=== PATIENT | male | born 1945 | race Caucasian/White ===

== ENCOUNTER 2016-12-28 09:04 | Inpatient (IN) | payer MEDICARE, MEDICAID ==
[~2016-12-28] VITALS: Ht 188 cm; Wt 115.6 kg
[2016-12-28] VITALS (188 sets, daily range): BP systolic 92–105; BP diastolic 59–79; PULSE 50–98; TEMP 98–99; O2SAT 88–100
[~2016-12-28 09:04] MED LIST: ALBUTEROL0.83 MG/ML IH; AMOXICILLIN/CLA1 TA1 PO; ASPIRIN 32325 MG/TAB PO; ATROVENT I0.2 MG/1 M IH; BACTRIM DS 8001 TAB PO; CEFTIN500 MG PO; DEPAKENE250 MG PO; DEPAKOTE 250MG250 MG PO; DEPAKOTE ER 25250 MG PO; DEPAKOTE500 MG PO; DESYREL 100MG100 MG PO; ENULOSE10 GM/151 PO; FLOMAX 0.40.4 MG/CAP PO; FOLIC ACID 11 MG/TA1 PO; GEODON 20 MG20 MG PO; GLUCOPHAGE1000 MG PO; IPRATROPIUM BROM3 M1 IH; K-DUR 2020 MEQ PO; KEPPRA 500MG500 MG PO; KLONOPIN 0.5MG0.5 MG PO; KLOR-CON M2020 MEQ PO; LANTUS100 U/ML SC; LASIX 40MG TABL40 MG PO; LEVAQUIN 5500 MG/TA1 PO; LEVAQUIN 750MG750 M1 PO; LIDODERM PATCH TP; LORTAB 5/500 501 TAB PO; MOBIC 7.5MG7.5 MG PO; MOTRIN 400400 MG/TAB PO; NEURONTIN300 MG/CAP PO; NEURONTIN800 MG/TAB PO; NORCO 325 MG-51 TAB PO; NORCO 325 MG-7.1 TAB PO; PERCOCET 325 MG1 TA2 PO; PRIL40 PO; PRILOTC PO; REMERON 15M15 MG/TA1 PO; SENNA8.6 MG PO; SYNTHROID0.1 MG/TAB PO; TAMIFLU 75MG75 MG PO; TRANSDERM-0.5 MG/21 TOP; TUDORZA IH; ULTRAM 50MG TAB50 MG PO; UNABLE; VALIUM5 MG/ML PO; ZITHROMAX 250M250 MG PO; ZOFRAN ODT8 MG PO; ZYPREXA 5MG5 MG PO
[2016-12-28 09:47] LABS: BASO % 0.3 % (0.0-2.0); EOS % 0.3 % (0-4.0); GRAN # 9.3 (1.4-6.5); GRAN % 81.1 % (42.2-75.2); HEMATOCRIT 43.2 % (42.0-52.0); LYMPH # 1.5 (1.2-3.4); LYMPH % 13.1 % (20.0-51.0); MEAN CELL VOLUME 89 fl (80.0-100.0); MEAN CORPUSCULAR HEMOGLOBIN 31 pg (27.0-31.0); MEAN CORPUSCULAR HGB CONC 35 g/dl (33.0-37.0); MEAN PLATELET VOLUME 11.3 fl (7.4-10.4); MONO # 0.5 (0.1-0.6); MONO % 4.6 % (1.7-9.3); PLATELET COUNT 115 K/mm3 (130-400); RED BLOOD COUNT 4.86 M/mm3 (4.20-5.60); REDCELL DISTRIBUTION WIDTH-CV 12.9 % (11.5-14.5); WHITE BLOOD COUNT 11.5 K/mm3 (4.8-10.8)
[2016-12-28 09:50] LABS: ADJUSTED CALCIUM 8.8 mg/dL (8.4-10.2); ALBUMIN 4.1 gm/dL (3.5-5.0); BILIRUBIN,TOTAL 2.4 mg/dL (0.0-1.0); CALCIUM 8.9 mg/dL (8.4-10.2); CREATININE, serum 1.17 mg/dL (0.66-1.25); POTASSIUM 4.1 mmol/L (3.4-5.0)
[2016-12-28 09:51] LABS: ARTERIAL BLD GAS O2 SATURATION 89.9 % (92-100); ARTERIAL BLD GAS TCO2 CT 25.4; ARTERIAL BLOOD GAS BASE EXCESS 0.7 (-2-2); ARTERIAL BLOOD GAS HCO3 24.3 meq/L (22-26); ARTERIAL BLOOD GAS PHT 7.45 C (7.35-7.45); ARTERIAL BLOOD GAS pH 7.45 (7.35-7.45); OXYHEMOGLOBIN 88.5 %
[2016-12-28 09:52] LABS: ALLEN TEST YES; ALLENS TEST RESULT PASS; ATS? YES
[2016-12-28 09:53] LABS: INFLUENZA B NEGATIVE
[2016-12-28 11:49] LABS: PH 7 (5-8); SQUAMOUS EPITHELIAL None Seen /hpf; URINE APPEARANCE Clear; URINE BACTERIA None Seen /hpf; URINE BILIRUBIN Negative (NEGATIVE); URINE BLOOD Negative (NEGATIVE); URINE COLOR Yellow; URINE GLUCOSE Negative (NEGATIVE); URINE KETONE Negative (NEGATIVE); URINE RBC 0-2 /hpf; URINE UROBILINOGEN Negative (NEGATIVE); URINE WBC 0-2 /hpf
[2016-12-28] MEDS ORDERED: PRIL40 PO (11:59)
[2016-12-28] MEDS ORDERED: SYNTHROID0.1 MG/TAB PO (12:00)
[2016-12-28] MEDS ORDERED: NEURONTIN800 MG/TAB PO (12:01)
[2016-12-28] MEDS ORDERED: KEPPRA 500MG500 MG PO (12:02)
[2016-12-28] MEDS ORDERED: DEPAKOTE 250MG250 MG PO (12:02)
[2016-12-28] MEDS ORDERED: KLONOPIN 0.5MG0.5 MG PO (12:03)
[2016-12-28] MEDS ORDERED: MOBIC 7.5MG7.5 MG PO (12:04)
[2016-12-28] MEDS ORDERED: GLUCOPHAGE1000 MG PO (12:05)
[2016-12-29] VITALS (8 sets, daily range): BP systolic 86–118; BP diastolic 40–72; PULSE 70–89; TEMP 97.2–98.7
[2016-12-29 07:13] LABS: BASO % 0.3 % (0.0-2.0); EOS # 0.1 (0.0-0.7); EOS % 1.1 % (0-4.0); GRAN # 7.6 (1.4-6.5); GRAN % 72.4 % (42.2-75.2); HEMATOCRIT 40.2 % (42.0-52.0); HEMOGLOBIN 13.5 g/dl (13.5-18.0); LYMPH % 19.4 % (20.0-51.0); MEAN CELL VOLUME 92 fl (80.0-100.0); MEAN CORPUSCULAR HEMOGLOBIN 31 pg (27.0-31.0); MEAN CORPUSCULAR HGB CONC 34 g/dl (33.0-37.0); MEAN PLATELET VOLUME 11.4 fl (7.4-10.4); MONO # 0.7 (0.1-0.6); MONO % 6.2 % (1.7-9.3); PLATELET COUNT 108 K/mm3 (130-400); RED BLOOD COUNT 4.38 M/mm3 (4.20-5.60); REDCELL DISTRIBUTION WIDTH-CV 13.2 % (11.5-14.5); WHITE BLOOD COUNT 10.5 K/mm3 (4.8-10.8)
[2016-12-29 07:30] LABS: CALCIUM 8.7 mg/dL (8.4-10.2); CREATININE, serum 1.04 mg/dL (0.66-1.25); POTASSIUM 4.1 mmol/L (3.4-5.0)
[2016-12-30 03:46] VITALS: BP 107/66; PULSE 71; TEMP 98.1
[2016-12-30 08:30] VITALS: BP 107/93; PULSE 74; TEMP 97.4
[2016-12-30 09:04] LABS: BASO % 0.4 % (0.0-2.0); EOS # 0.1 (0.0-0.7); EOS % 1.8 % (0-4.0); GRAN # 4.7 (1.4-6.5); GRAN % 65.4 % (42.2-75.2); HEMATOCRIT 39.8 % (42.0-52.0); HEMOGLOBIN 13.5 g/dl (13.5-18.0); LYMPH # 1.8 (1.2-3.4); LYMPH % 25.2 % (20.0-51.0); MEAN CELL VOLUME 91 fl (80.0-100.0); MEAN CORPUSCULAR HEMOGLOBIN 31 pg (27.0-31.0); MEAN CORPUSCULAR HGB CONC 34 g/dl (33.0-37.0); MEAN PLATELET VOLUME 11.6 fl (7.4-10.4); MONO # 0.5 (0.1-0.6); MONO % 6.8 % (1.7-9.3); PLATELET COUNT 122 K/mm3 (130-400); RED BLOOD COUNT 4.38 M/mm3 (4.20-5.60); REDCELL DISTRIBUTION WIDTH-CV 13.1 % (11.5-14.5); WHITE BLOOD COUNT 7.2 K/mm3 (4.8-10.8)
[2016-12-30 09:38] LABS: CALCIUM 8.9 mg/dL (8.4-10.2); CREATININE, serum 1.19 mg/dL (0.66-1.25); POTASSIUM 4.1 mmol/L (3.4-5.0)
[2016-12-30 12:21] VITALS: BP 96/70; PULSE 73; TEMP 98.6
[2016-12-30] MEDS ORDERED: ALBUTEROL1.25 MG/3 IH (14:29)
[2016-12-30] MEDS ORDERED: LEVAQUIN 750MG750 M1 PO (14:29)
[2016-12-30] MEDS ORDERED: PREDNISONE20 MG PO (14:29)
== END 2016-12-30 16:17 | disposition home or self-care (01) | DRG 871 ==
LOC: COL.ER 09:04 → ICU 10:41 → MEDICAL 10:41
PROVIDERS: Family Medicine; Internal Medicine
DX: A41.9 Sepsis, unspecified organism (principal); J18.9 Pneumonia, unspecified organism; E11.9 Type 2 diabetes mellitus without complications; E03.9 Hypothyroidism, unspecified; G31.84 Mild cognitive impairment of uncertain or unknown etiology; Z87.820 Personal history of traumatic brain injury; Z87.891 Personal history of nicotine dependence; Z79.84 Long term (current) use of oral hypoglycemic drugs
CPT/HCPCS: 99223-AI; 99232-AI; 99239; J0456; J0696; J1956; J7030; J7040; J7050

== ENCOUNTER → 2017-02-26 | Outpatient (CLI) | payer MEDICARE, MEDICAID ==
[~2017-02-26] MED LIST changes: +ALBUTEROL1.25 MG/3 IH; +LEXAPRO 5MG5 MG PO; +PREDNISONE20 MG PO
== END ==
LOC: COL.RAD 10:14
DX: I51.7 Cardiomegaly (principal); R91.8 Other nonspecific abnormal finding of lung field; J18.1 Lobar pneumonia, unspecified organism
CPT/HCPCS: Q9967

== ENCOUNTER 2017-07-14 19:21 | Inpatient (IN) | payer MEDICARE, MEDICAID ==
[2017-07-14] VITALS (55 sets, daily range): BP systolic 105; BP diastolic 64; PULSE 97–98; TEMP 99.7; O2SAT 70–100
[~2017-07-14] VITALS: Ht 188 cm; Wt 115.5 kg
[~2017-07-14 19:21] MED LIST changes: -LEXAPRO 5MG5 MG PO
[2017-07-14 20:15] LABS: BASO % 0.4 % (0.0-2.0); EOS # 0.1 (0.0-0.7); EOS % 0.6 % (0-4.0); GRAN # 7.8 (1.4-6.5); GRAN % 71.3 % (42.2-75.2); HEMOGLOBIN 15.3 g/dl (13.5-18.0); LYMPH # 2.5 (1.2-3.4); LYMPH % 22.6 % (20.0-51.0); MEAN CELL VOLUME 92 fl (80.0-100.0); MEAN CORPUSCULAR HEMOGLOBIN 31 pg (27.0-31.0); MEAN CORPUSCULAR HGB CONC 34 g/dl (33.0-37.0); MEAN PLATELET VOLUME 11.4 fl (7.4-10.4); MONO # 0.5 (0.1-0.6); MONO % 4.7 % (1.7-9.3); PLATELET COUNT 149 K/mm3 (130-400); RED BLOOD COUNT 4.91 M/mm3 (4.20-5.60); WHITE BLOOD COUNT 10.9 K/mm3 (4.8-10.8)
[2017-07-14 20:25] LABS: ADJUSTED CALCIUM 8.5 mg/dL (8.4-10.2); ALANINE AMINOTRANSFERASE 18 U/L (21-72); ALBUMIN 4.5 gm/dL (3.5-5.0); ALKALINE PHOSPHATASE 82 U/L (50-136); ANION GAP 14 mmol/L (7-16); BILIRUBIN,TOTAL 1.1 mg/dL (0.0-1.0); BLOOD UREA NITROGEN 9 mg/dL (9-20); CALCIUM 8.9 mg/dL (8.4-10.2); CARBON DIOXIDE 24 mmol/L (22-30); CHLORIDE 101 mmol/L (98-107); CREATININE, serum 1.12 mg/dL (0.66-1.25); GLUCOSE 97 mg/dL (74-106); LIPASE 91 U/L (23-300); POTASSIUM 3.9 mmol/L (3.4-5.0); SODIUM 139 mmol/L (137-145); TOTAL PROTEIN 8.3 gm/dL (6.4-8.2)
[2017-07-14 20:34] LABS: PROTHROMBIN TIME 11.1 SECONDS (9.7-12.8)
[2017-07-14 20:35] LABS: B-TYPE NATRIURETIC PEPTIDE 156 pg/mL (0-125)
[2017-07-14 20:37] LABS: PARTIAL THROMBOPLASTIN TIME 30.8 SECONDS (26.0-37.0); TROPONIN-I < 0.012 ng/mL (0.000-0.034)
[2017-07-14 20:55] LABS: PH 6 (5-8); SQUAMOUS EPITHELIAL 0-2 /hpf; URINE APPEARANCE Clear; URINE BACTERIA None Seen /hpf; URINE BILIRUBIN Negative (NEGATIVE); URINE BLOOD Negative (NEGATIVE); URINE COLOR Yellow; URINE GLUCOSE Negative (NEGATIVE); URINE KETONE Negative (NEGATIVE); URINE RBC 0-2 /hpf; URINE UROBILINOGEN Negative (NEGATIVE); URINE WBC 0-2 /hpf
[2017-07-14] MEDS ORDERED: LEXAPRO 5MG5 MG PO (21:24)
[2017-07-14 22:05] LABS: ARTERIAL BLD GAS TCO2 CT 23.4; ARTERIAL BLOOD GAS BASE EXCESS -0.8 (-2-2); ARTERIAL BLOOD GAS HCO3 22.4 meq/L (22-26); ARTERIAL BLOOD GAS PO2 73.4 mmHg (80-100); ARTERIAL BLOOD GAS pH 7.45 (7.35-7.45); OXYHEMOGLOBIN 93.9 %
[2017-07-14 22:06] LABS: ALLEN TEST YES; ALLENS TEST RESULT PASS; ATS? YES
[2017-07-15] VITALS (638 sets, daily range): BP systolic 93–124; BP diastolic 44–74; PULSE 65–82; TEMP 97.7–98.6; O2SAT 30–100
[2017-07-15 06:04] LABS: BASO % 0.4 % (0.0-2.0); EOS % 0.3 % (0-4.0); GRAN # 5.3 (1.4-6.5); GRAN % 72.7 % (42.2-75.2); HEMATOCRIT 37.8 % (42.0-52.0); LYMPH # 1.4 (1.2-3.4); LYMPH % 18.8 % (20.0-51.0); MEAN CELL VOLUME 92 fl (80.0-100.0); MEAN CORPUSCULAR HEMOGLOBIN 31 pg (27.0-31.0); MEAN CORPUSCULAR HGB CONC 34 g/dl (33.0-37.0); MEAN PLATELET VOLUME 11.3 fl (7.4-10.4); MONO # 0.6 (0.1-0.6); MONO % 7.5 % (1.7-9.3); PLATELET COUNT 104 K/mm3 (130-400); REDCELL DISTRIBUTION WIDTH-CV 13.2 % (11.5-14.5); WHITE BLOOD COUNT 7.3 K/mm3 (4.8-10.8)
[2017-07-15 06:06] LABS: HEMOGLOBIN 12.7 g/dl (13.5-18.0)
[2017-07-15 06:19] LABS: ADJUSTED CALCIUM 8.2 mg/dL (8.4-10.2); ALBUMIN 3.3 gm/dL (3.5-5.0); CALCIUM 7.6 mg/dL (8.4-10.2); CREATININE, serum 0.97 mg/dL (0.66-1.25); POTASSIUM 3.8 mmol/L (3.4-5.0); TOTAL PROTEIN 6.5 gm/dL (6.4-8.2)
[2017-07-16 04:05] VITALS: BP 112/72; PULSE 72; TEMP 98.1
[2017-07-16 07:22] LABS: BASO % 0.6 % (0.0-2.0); EOS # 0.1 (0.0-0.7); EOS % 1.7 % (0-4.0); GRAN # 3.1 (1.4-6.5); GRAN % 55.8 % (42.2-75.2); HEMATOCRIT 38.5 % (42.0-52.0); HEMOGLOBIN 12.6 g/dl (13.5-18.0); LYMPH # 1.7 (1.2-3.4); LYMPH % 30.3 % (20.0-51.0); MEAN CELL VOLUME 94 fl (80.0-100.0); MEAN CORPUSCULAR HEMOGLOBIN 31 pg (27.0-31.0); MEAN CORPUSCULAR HGB CONC 33 g/dl (33.0-37.0); MEAN PLATELET VOLUME 11.4 fl (7.4-10.4); MONO # 0.6 (0.1-0.6); PLATELET COUNT 116 K/mm3 (130-400); RED BLOOD COUNT 4.08 M/mm3 (4.20-5.60); REDCELL DISTRIBUTION WIDTH-CV 13.6 % (11.5-14.5); WHITE BLOOD COUNT 5.5 K/mm3 (4.8-10.8)
[2017-07-16 07:37] LABS: CALCIUM 8.4 mg/dL (8.4-10.2); CREATININE, serum 0.97 mg/dL (0.66-1.25)
[2017-07-16 08:14] VITALS: BP 122/71; PULSE 75; TEMP 98.1
[2017-07-16 12:06] VITALS: BP 113/75; PULSE 63; TEMP 98.2
[2017-07-16 16:17] VITALS: BP 122/73; PULSE 65; TEMP 98.2
[2017-07-16] MEDS ORDERED: LEVAQUIN 750MG750 M1 PO (17:58)
== END 2017-07-16 18:45 | disposition home or self-care (01) | DRG 871 ==
LOC: COL.ER 19:21 → ICU 21:16 → MEDICAL 07-15 11:44
PROVIDERS: Emergency Medicine; Family Medicine; Nurse Practitioner Family
DX: A41.9 Sepsis, unspecified organism (principal); J96.01 Acute respiratory failure with hypoxia; J18.9 Pneumonia, unspecified organism; J44.0 Chronic obstructive pulmonary disease with (acute) lower respiratory infection; E87.2 Acidosis; E11.9 Type 2 diabetes mellitus without complications; Z87.820 Personal history of traumatic brain injury; Z87.891 Personal history of nicotine dependence
CPT/HCPCS: 99223-AI; 99239; J1650; J1956; J2543; J7030; J7050

== ENCOUNTER 2017-10-15 10:28 | Inpatient (IN) | payer MEDICARE, MEDICAID ==
[~2017-10-15] VITALS: Ht 188 cm; Wt 113.5 kg
[~2017-10-15 10:28] MED LIST changes: +ASPIRIN E.C. 8181 MG PO; +LEXAPRO 5MG5 MG PO; +PROBIOTIC ACID1 EAC3 PO
[2017-10-15 11:53] LABS: BASO % 0.4 % (0.0-2.0); EOS % 0.3 % (0-4.0); GRAN # 8.6 (1.4-6.5); GRAN % 82.8 % (42.2-75.2); HEMATOCRIT 46.8 % (42.0-52.0); HEMOGLOBIN 15.8 g/dl (13.5-18.0); LYMPH # 1.3 (1.2-3.4); LYMPH % 12.9 % (20.0-51.0); MEAN CELL VOLUME 94 fl (80.0-100.0); MEAN CORPUSCULAR HEMOGLOBIN 32 pg (27.0-31.0); MEAN CORPUSCULAR HGB CONC 34 g/dl (33.0-37.0); MEAN PLATELET VOLUME 11.2 fl (7.4-10.4); MONO # 0.4 (0.1-0.6); MONO % 3.4 % (1.7-9.3); PLATELET COUNT 180 K/mm3 (130-400); RED BLOOD COUNT 4.99 M/mm3 (4.20-5.60); WHITE BLOOD COUNT 10.3 K/mm3 (4.8-10.8)
[2017-10-15 12:07] LABS: INFLUENZA A NEGATIVE; INFLUENZA B NEGATIVE
[2017-10-15 12:10] LABS: ADJUSTED CALCIUM 9.2 mg/dL (8.4-10.2); ALANINE AMINOTRANSFERASE 29 U/L (21-72); ALBUMIN 4.4 gm/dL (3.5-5.0); ALKALINE PHOSPHATASE 83 U/L (50-136); ANION GAP 14 mmol/L (7-16); BILIRUBIN,TOTAL 1.2 mg/dL (0.0-1.0); BLOOD UREA NITROGEN 7 mg/dL (9-20); C-REACTIVE PROTEIN 1.8 mg/dL (0.0-0.9); CALCIUM 9.5 mg/dL (8.4-10.2); CARBON DIOXIDE 25 mmol/L (22-30); CHLORIDE 103 mmol/L (98-107); CREATININE, serum 1.03 mg/dL (0.66-1.25); GLUCOSE 215 mg/dL (74-106); POTASSIUM 4.7 mmol/L (3.4-5.0); SODIUM 142 mmol/L (137-145); TOTAL PROTEIN 8.4 gm/dL (6.4-8.2)
[2017-10-15 12:11] LABS: COLLECTION METHOD CLEAN CATCH
[2017-10-15 12:19] LABS: B-TYPE NATRIURETIC PEPTIDE 162 pg/mL (0-125)
[2017-10-15 12:20] LABS: TROPONIN-I < 0.012 ng/mL (0.000-0.034)
[2017-10-15 12:20] LABS: PH 7 (5-8); SQUAMOUS EPITHELIAL None Seen /hpf; URINE APPEARANCE Clear; URINE BACTERIA None Seen /hpf; URINE BILIRUBIN Negative (NEGATIVE); URINE BLOOD Negative (NEGATIVE); URINE COLOR Yellow; URINE GLUCOSE Negative (NEGATIVE); URINE KETONE Negative (NEGATIVE); URINE LEUKOCYTE ESTERASE Negative (NEGATIVE); URINE PROTEIN(semi-quant) Negative (NEGATIVE); URINE RBC 0-2 /hpf; URINE UROBILINOGEN Negative (NEGATIVE); URINE WBC 0-2 /hpf
[2017-10-15 14:01] VITALS: BP 103/62; PULSE 100; TEMP 98.5
[2017-10-15 20:23] VITALS: BP 97/52; PULSE 79; TEMP 98.8
[2017-10-16] VITALS (7 sets, daily range): BP systolic 85–118; BP diastolic 49–66; PULSE 61–87; TEMP 97.6–98.5
[2017-10-17 00:30] VITALS: BP 112/62; PULSE 61; TEMP 98.1
[2017-10-17 03:23] VITALS: BP 107/49; PULSE 73; TEMP 98
[2017-10-17 07:10] LABS: BASO % 0.3 % (0.0-2.0); EOS # 0.1 (0.0-0.7); EOS % 1.1 % (0-4.0); GRAN # 3.8 (1.4-6.5); LYMPH # 1.8 (1.2-3.4); LYMPH % 29.6 % (20.0-51.0); MEAN CELL VOLUME 97 fl (80.0-100.0); MEAN CORPUSCULAR HGB CONC 32 g/dl (33.0-37.0); MEAN PLATELET VOLUME 11.2 fl (7.4-10.4); MONO # 0.4 (0.1-0.6); MONO % 6.5 % (1.7-9.3); PLATELET COUNT 125 K/mm3 (130-400); RED BLOOD COUNT 3.63 M/mm3 (4.20-5.60); WHITE BLOOD COUNT 6.2 K/mm3 (4.8-10.8)
[2017-10-17 07:18] LABS: HEMATOCRIT 35.1 % (42.0-52.0); HEMOGLOBIN 11.3 g/dl (13.5-18.0); MEAN CORPUSCULAR HEMOGLOBIN 31 pg (27.0-31.0)
[2017-10-17 08:03] VITALS: BP 100/49; PULSE 62; TEMP 97.6
[2017-10-17 11:57] VITALS: BP 99/63; PULSE 58; TEMP 97.6
[2017-10-17 13:02] VITALS: BP 105/60
[2017-10-17 15:59] VITALS: BP 110/55; PULSE 77; TEMP 98.2
[2017-10-17] MEDS ORDERED: AMOXICILLIN 8751 TAB PO (16:13)
[2017-10-17] MEDS ORDERED: MUCUS RELIEF400 M1 PO (16:14)
== END 2017-10-17 17:02 | disposition home or self-care (01) | DRG 871 ==
LOC: COL.ER 10:28 → MEDICAL 12:33
PROVIDERS: Emergency Medicine; Internal Medicine
DX: A41.9 Sepsis, unspecified organism (principal); J69.0 Pneumonitis due to inhalation of food and vomit; R47.01 Aphasia; J44.9 Chronic obstructive pulmonary disease, unspecified; R13.10 Dysphagia, unspecified; S06.9X0S Unspecified intracranial injury without loss of consciousness, sequela; E11.9 Type 2 diabetes mellitus without complications; E03.9 Hypothyroidism, unspecified; R56.9 Unspecified convulsions; Z87.891 Personal history of nicotine dependence; Z79.84 Long term (current) use of oral hypoglycemic drugs
CPT/HCPCS: 99223-AI; 99232-AI; 99239; J1650; J1815; J1956; J2543; J3370; J7030; J7050; J7512

== ENCOUNTER 2018-02-21 11:00 | Outpatient (RCR) | payer MEDICARE, MEDICAID ==
[~2018-02-21 11:00] MED LIST changes: +AMOXICILLIN 8751 TAB PO; +D-2000 90 MG-201 TAB PO; +FLAGYL500 MG PO; +MUCUS RELIEF400 M1 PO; +OYSCO 500500 M1 PO; +PROTONIX 40MG T40 MG PO
== END 2018-05-01 | disposition home or self-care (01) ==
LOC: WSST
DX: S06.890S Other specified intracranial injury without loss of consciousness, sequela (principal); R13.10 Dysphagia, unspecified; R47.01 Aphasia; R41.89 Other symptoms and signs involving cognitive functions and awareness
CPT/HCPCS: G8996-GN; G8997-GN; G8998-GN

== ENCOUNTER 2018-11-21 17:30 | Inpatient (IN) | payer MEDICARE, MEDICAID ==
[~2018-11-21] VITALS: Ht 190.5 cm; Wt 118.0 kg
[2018-11-21 19:06] LABS: ALANINE AMINOTRANSFERASE 14 U/L (21-72); ALBUMIN 3.8 gm/dL (3.5-5.0); ALKALINE PHOSPHATASE 72 U/L (50-136); ANION GAP 7 mmol/L (7-16); AST,SGOT 19 U/L (15-37); BILIRUBIN,TOTAL 1.1 mg/dL (0.0-1.0); BLOOD UREA NITROGEN 7 mg/dL (9-20); C-REACTIVE PROTEIN 5.9 mg/dL (0.0-0.9); CALCIUM 8.6 mg/dL (8.4-10.2); CARBON DIOXIDE 30 mmol/L (22-30); CHLORIDE 103 mmol/L (98-107); CREATININE, serum 1.08 mg/dL (0.66-1.25); GLUCOSE 151 mg/dL (74-106); LIPASE 60 U/L (23-300); POTASSIUM 3.9 mmol/L (3.4-5.0); SODIUM 140 mmol/L (137-145); TOTAL PROTEIN 7.6 gm/dL (6.4-8.2)
[2018-11-21 19:16] LABS: TROPONIN-I < 0.012 ng/mL (0.000-0.034)
[2018-11-21 19:27] LABS: COLLECTION METHOD CLEAN CATCH
[2018-11-21 19:28] LABS: BASO % 0.4 % (0.0-2.0); EOS # 0.1 (0.0-0.7); EOS % 1.2 % (0-4.0); GRAN # 3.6 (1.4-6.5); GRAN % 54.1 % (42.2-75.2); HEMATOCRIT 39.9 % (42.0-52.0); HEMOGLOBIN 13.6 g/dl (13.5-18.0); LYMPH # 2.3 (1.2-3.4); LYMPH % 33.6 % (20.0-51.0); MEAN CELL VOLUME 93 fl (80.0-100.0); MEAN CORPUSCULAR HEMOGLOBIN 32 pg (27.0-31.0); MEAN CORPUSCULAR HGB CONC 34 g/dl (33.0-37.0); MEAN PLATELET VOLUME 11.2 fl (7.4-10.4); MONO # 0.7 (0.1-0.6); MONO % 10.4 % (1.7-9.3); PLATELET COUNT 116 K/mm3 (130-400); RED BLOOD COUNT 4.29 M/mm3 (4.20-5.60); REDCELL DISTRIBUTION WIDTH-CV 12.9 % (11.5-14.5)
[2018-11-21 19:34] LABS: PH 7 (5-8); SQUAMOUS EPITHELIAL None Seen /hpf; URINE APPEARANCE Clear; URINE BACTERIA None Seen /hpf; URINE BILIRUBIN Negative (NEGATIVE); URINE BLOOD Negative (NEGATIVE); URINE COLOR Yellow; URINE GLUCOSE Negative (NEGATIVE); URINE KETONE Negative (NEGATIVE); URINE LEUKOCYTE ESTERASE Negative (NEGATIVE); URINE NITRATE Negative (NEGATIVE); URINE PROTEIN(semi-quant) Negative (NEGATIVE); URINE RBC 0-2 /hpf; URINE UROBILINOGEN >=4.0 mg/dL (NEGATIVE)
[2018-11-21 21:42] VITALS: BP 120/64; PULSE 91; TEMP 98.3
[2018-11-21] MEDS ORDERED: MOBIC 7.5MG7.5 MG PO (21:48)
--- NOTE | 2018-11-22 01:41 | NUR ---
pt resting in bed asleep, son at bedside. reports no pain. call light in reach.
[2018-11-22 03:27] VITALS: BP 112/65; PULSE 96; TEMP 98.1
--- NOTE | 2018-11-22 05:43 | NUR ---
pt had an unevetful night. no pain. slept most of the night with son at bedside. call light in reach
--- NOTE | 2018-11-22 07:17 | NUR ---
report given to Angely GASCA.
[2018-11-22 08:00] VITALS: BP 109/63; PULSE 99; TEMP 98
--- NOTE | 2018-11-22 10:44 | NUR ---
Assessment complete.patient awake,a/ox4.denies pain or discomfort at this time.denies SOB.all meds given.iv fluid infusing.lactic trending up.patient denies any other need at this time.will continue to monitor.call light in reach
[2018-11-22 11:29] LABS: HEMATOCRIT 42.4 % (42.0-52.0); HEMOGLOBIN 14.2 g/dl (13.5-18.0); MEAN CELL VOLUME 94 fl (80.0-100.0); MEAN CORPUSCULAR HEMOGLOBIN 32 pg (27.0-31.0); MEAN CORPUSCULAR HGB CONC 34 g/dl (33.0-37.0); PLATELET COUNT 141 K/mm3 (130-400); REDCELL DISTRIBUTION WIDTH-CV 13.1 % (11.5-14.5)
[2018-11-22 11:38] LABS: ALANINE AMINOTRANSFERASE < 6 U/L (21-72); ALBUMIN 3.9 gm/dL (3.5-5.0); ALKALINE PHOSPHATASE 72 U/L (50-136); ANION GAP 16 mmol/L (7-16); AST,SGOT 40 U/L (15-37); BILIRUBIN,TOTAL 0.8 mg/dL (0.0-1.0); BLOOD UREA NITROGEN 10 mg/dL (9-20); CALCIUM 9.2 mg/dL (8.4-10.2); CARBON DIOXIDE 17 mmol/L (22-30); CHLORIDE 113 mmol/L (98-107); CREATININE, serum 0.98 mg/dL (0.66-1.25); GLUCOSE 293 mg/dL (74-106); SODIUM 146 mmol/L (137-145); TOTAL PROTEIN 7.7 gm/dL (6.4-8.2)
[2018-11-22 12:00] VITALS: BP 109/58; PULSE 92; TEMP 98
[2018-11-22 12:30] LABS: ARTERIAL BLD GAS O2 SATURATION 90.7 % (92-100); ARTERIAL BLD GAS TCO2 CT 19.4; ARTERIAL BLOOD GAS BASE EXCESS -5.9 (-2-2); ARTERIAL BLOOD GAS HCO3 18.4 meq/L (22-26); ARTERIAL BLOOD GAS PCO2 32.9 mmHg (35-45); ARTERIAL BLOOD GAS PO2 60.5 mmHg (80-100); ARTERIAL BLOOD GAS pH 7.37 (7.35-7.45)
--- NOTE | 2018-11-22 14:07 | NUR ---
Plan to return home with family care [facility]. SW met with son's in room for care plan. Son reports that his niece is the designated attendant care through state and insurance but they all live together. RX obtained at [facility]. PCP Dr. Parekh. No dme reported in use. No care concerns reported. No additional needs identified.
[2018-11-22 16:00] VITALS: BP 109/61; PULSE 85; TEMP 97.4
--- NOTE | 2018-11-22 17:43 | NUR ---
patient resting in bed at this time with family at bedside.1000mls bolus x2.IVF infusing at 150ml at this time.lactic at 5.4 at this time.patient on oxygen at 2l/nc per orders.patient ambulates in room with assist.all meds given.remains on droplet precautions pending Resp virus panel result.no other concerns voiced at this time.call light in reach
--- NOTE | 2018-11-22 19:09 | NUR ---
Report given to CAMPOS Sosa
[2018-11-22 19:39] VITALS: BP 119/69; PULSE 78; TEMP 96.2
--- NOTE | 2018-11-22 21:49 | NUR ---
PT RESTING IN BED a+oX4 DAUGHTER INLAW AT BEDISE. REPORTS SOME PAIN AT TOUCH IN FEET. SOME SOA. PT HAD NO NEEDS AT THIS TIME.CALL LIGHT IN REACH.
[2018-11-23] VITALS (7 sets, daily range): BP systolic 96–127; BP diastolic 46–613; PULSE 70–83; TEMP 97.3–98.2
--- NOTE | 2018-11-23 05:39 | NUR ---
pt had an uneventful night. slept throughout the night with daughter inlaw at bedside. no c/o pain or soa. O2 was 92%, applied o2 for comfort. no needs at this time. call light inreach
--- NOTE | 2018-11-23 07:00 | NUR ---
Report received from CAMPOS Sosa. Pt in bed resting with daughter sleeping at bedside, will continue to monitor.
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
[2018-11-23 09:29] LABS: BASO % 0.1 % (0.0-2.0); GRAN # 10.1 (1.4-6.5); GRAN % 88.7 % (42.2-75.2); HEMATOCRIT 43.8 % (42.0-52.0); HEMOGLOBIN 14.2 g/dl (13.5-18.0); LYMPH # 0.9 (1.2-3.4); LYMPH % 8.2 % (20.0-51.0); MEAN CELL VOLUME 95 fl (80.0-100.0); MEAN CORPUSCULAR HEMOGLOBIN 31 pg (27.0-31.0); MEAN CORPUSCULAR HGB CONC 32 g/dl (33.0-37.0); MEAN PLATELET VOLUME 11.6 fl (7.4-10.4); MONO # 0.3 (0.1-0.6); MONO % 2.2 % (1.7-9.3); PLATELET COUNT 160 K/mm3 (130-400); RED BLOOD COUNT 4.62 M/mm3 (4.20-5.60); REDCELL DISTRIBUTION WIDTH-CV 13.3 % (11.5-14.5)
[2018-11-23 09:40] LABS: CALCIUM 9.2 mg/dL (8.4-10.2); CREATININE, serum 0.93 mg/dL (0.66-1.25); POTASSIUM 3.8 mmol/L (3.4-5.0)
--- NOTE | 2018-11-23 19:36 | NUR ---
Pt has done well today. Ambulated down to surgical floor and back with SBA, pt did get winded but able to maintain steady gait and denied pain. Resting in bed this evening with family at bedside who will be spending the night. INT to RF. Denies needs, bedside shift report to CAMPOS Rosario who will resuem care. Droplet precautions remain in place.
--- NOTE | 2018-11-23 20:33 | NUR ---
Patient sitting in recliner, assessment completed. Denies pain. No other needs at this time.
[2018-11-24 00:49] VITALS: BP 117/66; PULSE 62; TEMP 97.7
--- NOTE | 2018-11-24 05:23 | NUR ---
Patient slept most of the night. Denies pain, VSS. No other needs at this time.
[2018-11-24 05:46] VITALS: BP 125/69; PULSE 62; TEMP 97.6
[2018-11-24 06:07] LABS: HEMATOCRIT 37.6 % (42.0-52.0); HEMOGLOBIN 12.6 g/dl (13.5-18.0); MEAN CELL VOLUME 93 fl (80.0-100.0); MEAN CORPUSCULAR HEMOGLOBIN 31 pg (27.0-31.0); MEAN CORPUSCULAR HGB CONC 34 g/dl (33.0-37.0); MEAN PLATELET VOLUME 11.2 fl (7.4-10.4); PLATELET COUNT 147 K/mm3 (130-400); RED BLOOD COUNT 4.06 M/mm3 (4.20-5.60); REDCELL DISTRIBUTION WIDTH-CV 13.2 % (11.5-14.5)
[2018-11-24 06:19] LABS: CREATININE, serum 0.91 mg/dL (0.66-1.25); POTASSIUM 4.1 mmol/L (3.4-5.0)
[2018-11-24 08:29] VITALS: BP 127/65; PULSE 66; TEMP 98.9
[2018-11-24] MEDS ORDERED: MEDROL 4MG DOSPA4 MG PO (09:30)
[2018-11-24] MEDS ORDERED: GLUCOPHAGE1000 MG PO (09:33)
--- NOTE | 2018-11-24 09:59 | NUR ---
ASSESSMENT COMPLETE.PATIENT AWAKE,A/O X4.DENIES PAIN OR DISCOMFORT AT THIS TIME.FAMILY AT BEDSIDE.LSCTA.ALL MEDS GIVEN.REMAINS ON DROPLET AND CONTACT PRECAUTIONS.PATIENT DENIES ANY COUGH.NO OTHER CONCERNS VOICED AT THIS TIME.CALL LIGHT IN REACH
--- NOTE | 2018-11-24 11:50 | NUR ---
The patient discharged back home with family today, 11/24. No additional needs at this time.
--- NOTE | 2018-11-24 12:11 | NUR ---
patient discharge at this time.all discharge instructions reviewed.all questions answered.iv and telemetry discontinued.all belongings taken.patient denies any concerns at this time.KIERRA Sanchez escorted patient out
== END 2018-11-24 12:12 | disposition home or self-care (01) | DRG 191 ==
LOC: COL.ER 17:30 → MEDICAL 19:44
PROVIDERS: Emergency Medicine; ADMIT Internal Medicine
DX: J44.1 Chronic obstructive pulmonary disease with (acute) exacerbation (principal); R47.01 Aphasia; E87.2 Acidosis; E87.0 Hyperosmolality and hypernatremia; B97.19 Other enterovirus as the cause of diseases classified elsewhere; Z87.820 Personal history of traumatic brain injury; T14.90XS Injury, unspecified, sequela; R13.10 Dysphagia, unspecified; E11.9 Type 2 diabetes mellitus without complications; Z87.891 Personal history of nicotine dependence; G31.84 Mild cognitive impairment of uncertain or unknown etiology; S06.9X0S Unspecified intracranial injury without loss of consciousness, sequela; R09.02 Hypoxemia
CPT/HCPCS: 99223-AI; 99233-AI; 99239; C9113; J0456; J1815; J1956; J2543; J2920; J2930; J7030; J7050

== ENCOUNTER 2019-01-01 15:57 | Emergency (ER) | payer MEDICARE, MEDICAID ==
[~2019-01-01] VITALS: Ht 182.9 cm; Wt 104.5 kg
[~2019-01-01 15:57] MED LIST changes: +MEDROL 4MG DOSPA4 MG PO
[2019-01-01 16:02] VITALS: TEMP 98.2
[2019-01-01] MEDS ORDERED: ZITHROMAX Z PA250 MG PO (17:05)
[2019-01-01 17:21] VITALS: BP 98/65; PULSE 81
== END 2019-01-01 17:22 | disposition home or self-care (01) ==
LOC: COL.ER 15:57
DX: J20.9 Acute bronchitis, unspecified (principal); J42 Unspecified chronic bronchitis; Z79.82 Long term (current) use of aspirin; Z79.84 Long term (current) use of oral hypoglycemic drugs

== ENCOUNTER 2019-06-04 20:13 | Emergency (ER) | payer MEDICARE, MEDICAID ==
[~2019-06-04] VITALS: Ht 177.8 cm; Wt 111.4 kg
[~2019-06-04 20:13] MED LIST changes: +ZITHROMAX Z PA250 MG PO
[2019-06-04] MEDS ORDERED: MOBIC 7.5MG7.5 MG PO (20:36)
[2019-06-04 21:23] LABS: BASO # 0.1 (0.0-0.2); BASO % 0.5 % (0.0-2.0); EOS # 0.1 (0.0-0.7); EOS % 1.2 % (0-4.0); GRAN # 7.3 (1.4-6.5); GRAN % 66.4 % (42.2-75.2); HEMATOCRIT 43.2 % (42.0-52.0); LYMPH # 2.6 (1.2-3.4); LYMPH % 23.5 % (20.0-51.0); MEAN CELL VOLUME 90 fl (80.0-100.0); MEAN CORPUSCULAR HEMOGLOBIN 31 pg (27.0-31.0); MEAN CORPUSCULAR HGB CONC 35 g/dl (33.0-37.0); MEAN PLATELET VOLUME 11.3 fl (7.4-10.4); MONO # 0.9 (0.1-0.6); MONO % 7.9 % (1.7-9.3); PLATELET COUNT 150 K/mm3 (130-400); RED BLOOD COUNT 4.78 M/mm3 (4.20-5.60); REDCELL DISTRIBUTION WIDTH-CV 12.9 % (11.5-14.5)
[2019-06-04 21:26] LABS: PROTHROMBIN TIME 11.9 SECONDS (9.7-12.8)
[2019-06-04 21:36] LABS: ALANINE AMINOTRANSFERASE < 6 U/L (21-72); ALBUMIN 4.1 gm/dL (3.5-5.0); ALKALINE PHOSPHATASE 84 U/L (50-136); ANION GAP 13 mmol/L (7-16); AST,SGOT 19 U/L (15-37); BILIRUBIN,TOTAL 1.1 mg/dL (0.0-1.0); BLOOD UREA NITROGEN 7 mg/dL (9-20); C-REACTIVE PROTEIN 5.2 mg/dL (0.0-0.9); CALCIUM 8.8 mg/dL (8.4-10.2); CARBON DIOXIDE 25 mmol/L (22-30); CHLORIDE 103 mmol/L (98-107); CREATININE, serum 1.01 (0.66-1.25); GLUCOSE 121 mg/dL (74-106); LIPASE 48 U/L (23-300); POTASSIUM 3.9 mmol/L (3.4-5.0); SODIUM 140 mmol/L (137-145); TOTAL PROTEIN 7.9 gm/dL (6.4-8.2)
[2019-06-04 21:46] LABS: TROPONIN-I < 0.012 ng/mL (0.000-0.035)
[2019-06-04 21:59] LABS: COLLECTION METHOD CATHETER
[2019-06-04 22:05] LABS: MUCOUS Present /lpf; PH 7 (5-8); SQUAMOUS EPITHELIAL 0-2 /hpf; URINE APPEARANCE Clear; URINE BACTERIA None Seen /hpf; URINE BILIRUBIN Negative (NEGATIVE); URINE BLOOD Negative (NEGATIVE); URINE COLOR Yellow; URINE GLUCOSE Negative (NEGATIVE); URINE KETONE Negative (NEGATIVE); URINE LEUKOCYTE ESTERASE Negative (NEGATIVE); URINE NITRATE Negative (NEGATIVE); URINE PROTEIN(semi-quant) Negative (NEGATIVE); URINE RBC 0-2 /hpf; URINE UROBILINOGEN >=4.0 mg/dL (NEGATIVE)
[2019-06-05 00:40] VITALS: TEMP 99
[2019-06-05] MEDS ORDERED: CEPHALEXIN500 M1 PO (00:48)
[2019-06-05 01:22] VITALS: BP 119/79; PULSE 94
== END 2019-06-05 01:22 | disposition home or self-care (01) ==
LOC: COL.ER 20:13
PROVIDERS: Emergency Medicine
DX: M10.9 Gout, unspecified (principal); R53.1 Weakness; R33.9 Retention of urine, unspecified; Z90.49 Acquired absence of other specified parts of digestive tract
CPT/HCPCS: A4216; J0696; J7030; Q9967

== ENCOUNTER 2019-06-17 20:01 | Emergency (ER) | payer MEDICARE, MEDICAID ==
[~2019-06-17] VITALS: Ht 182.9 cm; Wt 100.0 kg
[~2019-06-17 20:01] MED LIST changes: +CEPHALEXIN500 M1 PO
[2019-06-17 20:04] VITALS: TEMP 96.9
[2019-06-17 20:44] LABS: BASO % 0.4 % (0.0-2.0); EOS # 0.1 (0.0-0.7); EOS % 1.9 % (0-4.0); GRAN # 3.6 (1.4-6.5); GRAN % 48.2 % (42.2-75.2); HEMATOCRIT 42.4 % (42.0-52.0); HEMOGLOBIN 14.2 g/dl (13.5-18.0); LYMPH # 3.1 (1.2-3.4); LYMPH % 42.2 % (20.0-51.0); MEAN CELL VOLUME 91 fl (80.0-100.0); MEAN CORPUSCULAR HEMOGLOBIN 31 pg (27.0-31.0); MEAN CORPUSCULAR HGB CONC 34 g/dl (33.0-37.0); MEAN PLATELET VOLUME 11.2 fl (7.4-10.4); MONO # 0.5 (0.1-0.6); MONO % 6.9 % (1.7-9.3); PLATELET COUNT 200 K/mm3 (130-400); RED BLOOD COUNT 4.65 M/mm3 (4.20-5.60); REDCELL DISTRIBUTION WIDTH-CV 12.7 % (11.5-14.5)
[2019-06-17 20:53] LABS: ALANINE AMINOTRANSFERASE < 6 U/L (21-72); ALBUMIN 3.9 gm/dL (3.5-5.0); ALKALINE PHOSPHATASE 77 U/L (50-136); ANION GAP 11 mmol/L (7-16); AST,SGOT 46 U/L (15-37); BILIRUBIN,TOTAL 0.6 mg/dL (0.0-1.0); BLOOD UREA NITROGEN 10 mg/dL (9-20); C-REACTIVE PROTEIN 0.7 mg/dL (0.0-0.9); CALCIUM 8.7 mg/dL (8.4-10.2); CARBON DIOXIDE 23 mmol/L (22-30); CHLORIDE 107 mmol/L (98-107); CREATININE, serum 1.08 (0.66-1.25); GLUCOSE 97 mg/dL (74-106); POTASSIUM 4.2 mmol/L (3.4-5.0); SODIUM 141 mmol/L (137-145); TOTAL PROTEIN 7.4 gm/dL (6.4-8.2)
[2019-06-17 21:00] LABS: COLLECTION METHOD CLEAN CATCH
[2019-06-17 21:07] LABS: TROPONIN-I < 0.012 ng/mL (0.000-0.035)
[2019-06-17 21:12] LABS: PH 6 (5-8); SQUAMOUS EPITHELIAL 0-2 /hpf; URINE APPEARANCE Clear; URINE BACTERIA None Seen /hpf; URINE BILIRUBIN Negative (NEGATIVE); URINE BLOOD Negative (NEGATIVE); URINE COLOR Straw; URINE GLUCOSE Negative (NEGATIVE); URINE KETONE Negative (NEGATIVE); URINE LEUKOCYTE ESTERASE Negative (NEGATIVE); URINE NITRATE Negative (NEGATIVE); URINE PROTEIN(semi-quant) Negative (NEGATIVE); URINE RBC 0-2 /hpf; URINE UROBILINOGEN Negative (NEGATIVE)
[2019-06-17] MEDS ORDERED: MEDROL 4MG DOSPA4 MG PO (22:00)
[2019-06-17] MEDS ORDERED: CLEOCIN HCL300 MG PO (22:00)
[2019-06-17 22:40] VITALS: BP 107/73; PULSE 57
== END 2019-06-17 22:44 | disposition home or self-care (01) ==
LOC: COL.ER 20:01
PROVIDERS: Emergency Medicine
DX: R53.1 Weakness (principal); E11.9 Type 2 diabetes mellitus without complications; E03.9 Hypothyroidism, unspecified; J44.9 Chronic obstructive pulmonary disease, unspecified; G40.909 Epilepsy, unspecified, not intractable, without status epilepticus; Z90.49 Acquired absence of other specified parts of digestive tract; Z98.890 Other specified postprocedural states; Z87.01 Personal history of pneumonia (recurrent); Z79.82 Long term (current) use of aspirin; Z79.84 Long term (current) use of oral hypoglycemic drugs
CPT/HCPCS: J7030; J7512

== ENCOUNTER → 2019-06-30 | Outpatient (CLI) | payer MEDICARE, MEDICAID ==
[~2019-06-30] MED LIST changes: +CLEOCIN HCL300 MG PO
[2019-06-30 15:44] LABS: VALPROIC ACID (DEPAKENE) 39.8 ug/mL (50.0-100.0)
[2019-06-30 15:49] LABS: PHENYTOIN (DILANTIN) < 3.0 ug/mL (10.0-20.0)
== END ==
LOC: ZCOL.LAB 11:54
PROVIDERS: Internal Medicine
DX: G40.909 Epilepsy, unspecified, not intractable, without status epilepticus (principal)

== ENCOUNTER 2019-07-27 00:52 | Inpatient (IN) | payer MEDICARE, MEDICAID ==
[2019-07-27] VITALS (295 sets, daily range): BP systolic 97–113; BP diastolic 60–63; PULSE 65–93; TEMP 97.8–100.7; O2SAT 85–100
[~2019-07-27] VITALS: Ht 182.9 cm; Wt 110.9 kg
[2019-07-27 01:32] LABS: BASO % 0.4 % (0.0-2.0); EOS # 0.1 (0.0-0.7); GRAN # 7.8 (1.4-6.5); GRAN % 75.7 % (42.2-75.2); HEMATOCRIT 43.5 % (42.0-52.0); HEMOGLOBIN 14.7 g/dl (13.5-18.0); LYMPH # 1.7 (1.2-3.4); LYMPH % 16.5 % (20.0-51.0); MEAN CELL VOLUME 92 fl (80.0-100.0); MEAN CORPUSCULAR HEMOGLOBIN 31 pg (27.0-31.0); MEAN CORPUSCULAR HGB CONC 34 g/dl (33.0-37.0); MEAN PLATELET VOLUME 11.3 fl (7.4-10.4); MONO # 0.6 (0.1-0.6); PLATELET COUNT 143 K/mm3 (130-400); RED BLOOD COUNT 4.73 M/mm3 (4.20-5.60); REDCELL DISTRIBUTION WIDTH-CV 12.7 % (11.5-14.5)
[2019-07-27 01:37] LABS: INR 1.1 (0.8-3.0); PROTHROMBIN TIME 12.3 SECONDS (9.7-12.8)
[2019-07-27 01:44] LABS: ALANINE AMINOTRANSFERASE < 6 U/L (21-72); ALBUMIN 4.2 gm/dL (3.5-5.0); ALKALINE PHOSPHATASE 76 U/L (50-136); ANION GAP 10 mmol/L (7-16); AST,SGOT 19 U/L (15-37); BILIRUBIN,TOTAL 0.8 mg/dL (0.0-1.0); BLOOD UREA NITROGEN 7 mg/dL (9-20); CALCIUM 8.9 mg/dL (8.4-10.2); CARBON DIOXIDE 26 mmol/L (22-30); CHLORIDE 104 mmol/L (98-107); CREATININE, serum 1.03 (0.66-1.25); GLUCOSE 143 mg/dL (74-106); POTASSIUM 3.8 mmol/L (3.4-5.0); SODIUM 140 mmol/L (137-145); TOTAL PROTEIN 7.7 gm/dL (6.4-8.2)
[2019-07-27 01:49] LABS: ARTERIAL BLD GAS O2 SATURATION 94.3 % (92-100); ARTERIAL BLD GAS TCO2 CT 23.7; ARTERIAL BLOOD GAS BASE EXCESS -0.6 (-2-2); ARTERIAL BLOOD GAS HCO3 22.7 meq/L (22-26); ARTERIAL BLOOD GAS PCO2 33.8 mmHg (35-45); ARTERIAL BLOOD GAS PO2 68.2 mmHg (80-100); ARTERIAL BLOOD GAS pH 7.45 (7.35-7.45)
[2019-07-27 01:58] LABS: TROPONIN-I < 0.012 ng/mL (0.000-0.035)
[2019-07-27 02:36] LABS: COLLECTION METHOD CATHETER
[2019-07-27 02:51] LABS: PH 7 (5-8); SQUAMOUS EPITHELIAL None Seen /hpf; URINE APPEARANCE Clear; URINE BACTERIA Rare /hpf; URINE BILIRUBIN Negative (NEGATIVE); URINE BLOOD 3+ (NEGATIVE); URINE COLOR Yellow; URINE GLUCOSE Negative (NEGATIVE); URINE KETONE Negative (NEGATIVE); URINE LEUKOCYTE ESTERASE Negative (NEGATIVE); URINE NITRATE Negative (NEGATIVE); URINE PROTEIN(semi-quant) Negative (NEGATIVE); URINE RBC >50 /hpf
[2019-07-27] MEDS ORDERED: DOXYCYCLINE HY100 MG PO (04:49)
[2019-07-27] MEDS ORDERED: LIPITOR 40MG TA40 MG PO (04:49)
[2019-07-27] MEDS ORDERED: NEURONTIN800 MG/TAB PO (04:50)
[2019-07-27] MEDS ORDERED: KEPPRA 500MG500 MG PO (04:50)
--- NOTE | 2019-07-27 05:24 | NUR ---
Arrived to the unit via stretcher; patient drowsy, will open eyes briefly when aroused, but will quickly return to sleeping. Attached to all monitors. Assessment complete.
[2019-07-27 05:53] LABS: BASO % 0.4 % (0.0-2.0); EOS % 0.3 % (0-4.0); GRAN # 8.3 (1.4-6.5); GRAN % 79.3 % (42.2-75.2); HEMATOCRIT 40.7 % (42.0-52.0); HEMOGLOBIN 13.3 g/dl (13.5-18.0); LYMPH # 1.3 (1.2-3.4); LYMPH % 12.5 % (20.0-51.0); MEAN CELL VOLUME 94 fl (80.0-100.0); MEAN CORPUSCULAR HEMOGLOBIN 31 pg (27.0-31.0); MEAN CORPUSCULAR HGB CONC 33 g/dl (33.0-37.0); MEAN PLATELET VOLUME 11.5 fl (7.4-10.4); MONO # 0.7 (0.1-0.6); PLATELET COUNT 122 K/mm3 (130-400); RED BLOOD COUNT 4.32 M/mm3 (4.20-5.60); REDCELL DISTRIBUTION WIDTH-CV 12.7 % (11.5-14.5)
--- NOTE | 2019-07-27 06:00 | NUR ---
Son at bedside to assist with communication and to answer questions for staff.
[2019-07-27 06:02] LABS: ALANINE AMINOTRANSFERASE < 6 U/L (21-72); ALBUMIN 3.6 gm/dL (3.5-5.0); ALKALINE PHOSPHATASE 60 U/L (50-136); ANION GAP 10 mmol/L (7-16); AST,SGOT 24 U/L (15-37); BILIRUBIN,TOTAL 0.9 mg/dL (0.0-1.0); BLOOD UREA NITROGEN 6 mg/dL (9-20); CARBON DIOXIDE 25 mmol/L (22-30); CHLORIDE 107 mmol/L (98-107); CREATININE, serum 1.04 (0.66-1.25); GLUCOSE 155 mg/dL (74-106); POTASSIUM 4.4 mmol/L (3.4-5.0); SODIUM 141 mmol/L (137-145); TOTAL PROTEIN 6.8 gm/dL (6.4-8.2)
[2019-07-27] MEDS ORDERED: GLUCOPHAGE1000 MG PO (06:15)
--- NOTE | 2019-07-27 10:06 | NUR ---
RUSLAN canales rounded with the team. PT/OT/ST ordered; order in for the patient to move to the floor today, 07/27. After rounding, RUSLAN canales met with the patient and the patient's son Bora. The patient was sleeping, Bora answered assessment questions. The patient lives in [place] with his daughter Cheryl. The patient has a CPAP or BiPAP; Bora was unsure which and where patient received supplies. The patient requires assistance with showers and Bora reports either he or Cheryl assist the patient. The patient receives medications from [facility] pharmacy with no difficulties; patient's children assist with medication pick-up. The patient does not have advanced directives in the EMR. MANAGER IN HOME student provided a DPOA-HC form and explained it's purpose. MANAGER IN HOME student informed Bora about home health services; Bora reports patient has never had HH services but was interested in possible receiving services. RUSLAN student provided a list from Medicare.gov. director of tax services will continue to follow to ensure a safe discharge.
--- NOTE | 2019-07-27 11:47 | NUR ---
PT SITTING UP IN BED AT THIS TIME, DENIES PAIN OR SOB, REMAIN ON IVF. ABLE TO TAKE PILL WITH NECTOR THICK LIQUIDS, NO COUGHING OR ASPIRATION NOTED PT/OT WORKED WITH PT THIS AM, ABLE TO SIT ON SIDE OF BED, STAND AND TAKE A FEW STEPS. VSS, AFEBRILE AT THIS TIME. SON AT BEDSIDE AND PT UP AND CONVERSINGWITH HIM. PT A/O TO SELF. DESAI REMAINS IN PLACE, PERICARE COMPLETED. TX ORDERS WRITTEN, WILL CALL REPORT TO FLOOR AND UP DATE PROVIDERS NEEDED.
--- NOTE | 2019-07-27 16:00 | NUR ---
PT ADMITTED TO FLOOR AT THIS TIME. FAMILY AT BEDSIDE TO ASSIST WITH COMMUNICAION. NO NEEDS VOICED AT THIS TIME. PT WAS ABLE TO STAND AND TURN TO W/C THEN W/C TO BED WITHOUT ISSUE.
--- NOTE | 2019-07-27 18:00 | NUR ---
BOX ORDER PERSON'S ASSISTED PT TO BATHROOM. PT WAS ABLE WALK TO BATHROOM
[2019-07-28 04:10] VITALS: BP 125/67; PULSE 83; TEMP 97.8
--- NOTE | 2019-07-28 07:30 | NUR ---
Report received from CAMPOS Rosario.
[2019-07-28 07:56] LABS: BASO % 0.1 % (0.0-2.0); GRAN # 10.1 (1.4-6.5); GRAN % 89.7 % (42.2-75.2); HEMATOCRIT 43.6 % (42.0-52.0); HEMOGLOBIN 13.9 g/dl (13.5-18.0); LYMPH # 0.7 (1.2-3.4); LYMPH % 6.1 % (20.0-51.0); MEAN CELL VOLUME 96 fl (80.0-100.0); MEAN CORPUSCULAR HEMOGLOBIN 31 pg (27.0-31.0); MEAN CORPUSCULAR HGB CONC 32 g/dl (33.0-37.0); MEAN PLATELET VOLUME 11.6 fl (7.4-10.4); MONO # 0.4 (0.1-0.6); MONO % 3.5 % (1.7-9.3); PLATELET COUNT 146 K/mm3 (130-400); RED BLOOD COUNT 4.56 M/mm3 (4.20-5.60); REDCELL DISTRIBUTION WIDTH-CV 13.2 % (11.5-14.5)
[2019-07-28 08:04] LABS: ALANINE AMINOTRANSFERASE < 6 U/L (21-72); ALBUMIN 3.8 gm/dL (3.5-5.0); ALKALINE PHOSPHATASE 62 U/L (50-136); ANION GAP 9 mmol/L (7-16); AST,SGOT 26 U/L (15-37); BILIRUBIN,TOTAL 0.4 mg/dL (0.0-1.0); BLOOD UREA NITROGEN 8 mg/dL (9-20); CARBON DIOXIDE 25 mmol/L (22-30); CHLORIDE 120 mmol/L (98-107); CREATININE, serum 0.77 (0.66-1.25); GLUCOSE 181 mg/dL (74-106); POTASSIUM 3.4 mmol/L (3.4-5.0); SODIUM 153 mmol/L (137-145); TOTAL PROTEIN 7.3 gm/dL (6.4-8.2)
[2019-07-28 09:45] VITALS: BP 129/75; PULSE 107; TEMP 97.8
[2019-07-28 12:55] VITALS: BP 141/86; PULSE 59; TEMP 97.7
--- NOTE | 2019-07-28 15:28 | NUR ---
JENNIFER spoke with patient's daughters to pick a home health agency. [facility] was chosen. JENNIFER faxed referral to Jhonny at [facility]. managed services consultant will continue to follow.
[2019-07-28 18:59] LABS: CALCIUM 9.1 mg/dL (8.4-10.2); CREATININE, serum 0.77 (0.66-1.25); POTASSIUM 3.8 mmol/L (3.4-5.0)
--- NOTE | 2019-07-28 19:52 | NUR ---
Pt has been resting comfortably in room today, family has been in the room during the day, no C/O pain, Chávez catheter was discontinued this afternoon. VS have remained stable.
[2019-07-28 20:12] VITALS: BP 121/67; PULSE 85; TEMP 98.2
[2019-07-29] VITALS: BP 99/55; PULSE 89; TEMP 97.7
[2019-07-29 03:28] VITALS: BP 98/54; PULSE 76; TEMP 98
--- NOTE | 2019-07-29 07:00 | NUR ---
Report received from CAMPOS Rosario. Pt in bed resting with son at bedside, doing well, denies needs, will continue to monitor.
[2019-07-29 07:43] LABS: BASO % 0.2 % (0.0-2.0); EOS % 0.1 % (0-4.0); GRAN # 7.6 (1.4-6.5); GRAN % 76.6 % (42.2-75.2); HEMATOCRIT 40.9 % (42.0-52.0); HEMOGLOBIN 13.4 g/dl (13.5-18.0); LYMPH # 1.7 (1.2-3.4); LYMPH % 17.6 % (20.0-51.0); MEAN CELL VOLUME 94 fl (80.0-100.0); MEAN CORPUSCULAR HEMOGLOBIN 31 pg (27.0-31.0); MEAN CORPUSCULAR HGB CONC 33 g/dl (33.0-37.0); MEAN PLATELET VOLUME 11.3 fl (7.4-10.4); MONO # 0.5 (0.1-0.6); PLATELET COUNT 143 K/mm3 (130-400); RED BLOOD COUNT 4.37 M/mm3 (4.20-5.60); REDCELL DISTRIBUTION WIDTH-CV 13.4 % (11.5-14.5)
[2019-07-29 07:55] LABS: ALBUMIN 3.6 gm/dL (3.5-5.0); BILIRUBIN,TOTAL 0.7 mg/dL (0.0-1.0); CALCIUM 9.1 mg/dL (8.4-10.2); CREATININE, serum 0.79 (0.66-1.25); POTASSIUM 3.5 mmol/L (3.4-5.0)
--- NOTE | 2019-07-29 09:00 | NUR ---
Assessment charted. Pt up to bathroom, dallin fine, had bowel movement. In to take shower this am from bloody drainage after fong d/c yesterday. Pt not oriented to anything, per son he feels he knows the answers but unable to answer questions on command. pt denies pain, agreeable and able to follow commands. doing well, will continue to monitor.
[2019-07-29 13:00] VITALS: BP 116/55; PULSE 84; TEMP 98.4
[2019-07-29 17:00] VITALS: BP 131/71; PULSE 98; TEMP 98.4
--- NOTE | 2019-07-29 18:20 | NUR ---
Pt doing well, daughter and family at bedside visiting. Pt denies pain, has taken in a lot of water today over shift approximately 5000 ccs, discussed need to reduce intake. Will give bedside shift report to nigthshift nurse who will resume care.
--- NOTE | 2019-07-29 19:32 | NUR ---
Pt resting. No distress noted. Sitting at side of bed. Family at bedside. Ptdenies pain at this time. Respirations even and unlabored. Lungs are diminished. Abdomen rounded and firm. BS+. Pt ambulating to bathroom to void. Urine clear, yellow. No neurological deficits noted except some confusion. Drinking nectar thick liquids without difficulty. Will continue to monitor.
[2019-07-29 19:43] VITALS: BP 115/72; PULSE 79; TEMP 98.2
--- NOTE | 2019-07-29 23:10 | NUR ---
Pt called. He reported feeling warm. Temperature checked. WNL-97.9 orally. Pt had just been up to the bathroom. He voided urine and passed some clots in the urine and was concerned. Pts PO intake has slowed down. Pt also reports mild bladder pain.
[2019-07-30] VITALS: BP 109/68; PULSE 76; TEMP 98
[2019-07-30 03:10] VITALS: BP 126/84; PULSE 77; TEMP 98
--- NOTE | 2019-07-30 03:15 | NUR ---
Pt called. He got up to bathroom and had hematuria with large clots again. Pt cleaned up. Meaghan LIAO contacted. No new orders received. VSS.
--- NOTE | 2019-07-30 06:15 | NUR ---
Pt resting this AM. No distress noted. Pt continues to have hematuria. No needs noted.
--- NOTE | 2019-07-30 08:45 | NUR ---
Patient is resting in bed, daughter is at bedside. Medications administered with thicken liquids, swallowed whole without difficulty. Assisted with ordering breakfast. Call light and personal items are within reach.
[2019-07-30 08:55] VITALS: BP 129/81; PULSE 83; TEMP 98.5
[2019-07-30 09:34] LABS: BASO % 0.3 % (0.0-2.0); EOS # 0.1 (0.0-0.7); EOS % 1.1 % (0-4.0); GRAN # 4.3 (1.4-6.5); GRAN % 58.8 % (42.2-75.2); HEMOGLOBIN 13.6 g/dl (13.5-18.0); LYMPH # 2.4 (1.2-3.4); LYMPH % 32.6 % (20.0-51.0); MEAN CELL VOLUME 94 fl (80.0-100.0); MEAN CORPUSCULAR HEMOGLOBIN 31 pg (27.0-31.0); MEAN CORPUSCULAR HGB CONC 32 g/dl (33.0-37.0); MEAN PLATELET VOLUME 11.5 fl (7.4-10.4); MONO # 0.5 (0.1-0.6); MONO % 6.4 % (1.7-9.3); PLATELET COUNT 151 K/mm3 (130-400); RED BLOOD COUNT 4.46 M/mm3 (4.20-5.60); REDCELL DISTRIBUTION WIDTH-CV 13.3 % (11.5-14.5)
[2019-07-30 09:46] LABS: CALCIUM 9.1 mg/dL (8.4-10.2); CREATININE, serum 0.96 (0.66-1.25); POTASSIUM 3.6 mmol/L (3.4-5.0)
[2019-07-30] MEDS ORDERED: PROAIR HFA0.09 MG/AC IH (11:23)
[2019-07-30] MEDS ORDERED: FLOMAX 0.40.4 MG/CAP PO (11:24)
[2019-07-30] MEDS ORDERED: PREDNISONE20 MG PO (11:25)
[2019-07-30 12:07] VITALS: BP 131/71; PULSE 80; TEMP 97.9
--- NOTE | 2019-07-30 17:21 | NUR ---
Patient discharged home with family. Discussed discharge instructions with daughter who verbalized understanding. Was escorted out by staff via wheelchair to private vehicle.
--- NOTE | 2019-07-31 16:02 | NUR ---
The patient discharged back home yesterday, 07/30, with home health services for through [facility]. Jhonny, at [facility], contacted JENNIFER and requested discharge orders. JENNIFER faxed orders to Jhonny.
== END 2019-07-30 16:50 | disposition home health service (06) | DRG 871 ==
LOC: COL.ER 00:52 → ICU 03:31 → MEDICAL 16:03
PROVIDERS: Emergency Medicine; Hospitalist; Nurse Practitioner Family; ADMIT Student in an Organized Health Care Education/Training Program
DX: A41.9 Sepsis, unspecified organism (principal); J96.01 Acute respiratory failure with hypoxia; G93.40 Encephalopathy, unspecified; E87.2 Acidosis; E87.0 Hyperosmolality and hypernatremia; R47.01 Aphasia; T83.83XA Hemorrhage due to genitourinary prosthetic devices, implants and grafts, initial encounter; J06.9 Acute upper respiratory infection, unspecified; J44.9 Chronic obstructive pulmonary disease, unspecified; Z87.820 Personal history of traumatic brain injury; G31.84 Mild cognitive impairment of uncertain or unknown etiology; R25.1 Tremor, unspecified; E87.8 Other disorders of electrolyte and fluid balance, not elsewhere classified; R33.9 Retention of urine, unspecified; R53.81 Other malaise; E11.9 Type 2 diabetes mellitus without complications; E03.9 Hypothyroidism, unspecified; R13.10 Dysphagia, unspecified; Z79.84 Long term (current) use of oral hypoglycemic drugs; Z79.890 Hormone replacement therapy; Z79.82 Long term (current) use of aspirin; Z87.891 Personal history of nicotine dependence; Y84.6 Urinary catheterization as the cause of abnormal reaction of the patient, or of later complication, without mention of misadventure at the time of the procedure
CPT/HCPCS: 99223-AI; 99231-AI; 99232-AI; 99239; A4216; J0456; J0696; J0881; J1815; J2543; J2930; J7030; J7050; J7512

== ENCOUNTER → 2019-09-04 | Outpatient (CLI) | payer MEDICARE, MEDICAID ==
[~2019-09-04] MED LIST changes: +DOXYCYCLINE HY100 MG PO; +LIPITOR 40MG TA40 MG PO; +PROAIR HFA0.09 MG/AC IH
[2019-09-04 18:43] LABS: BASO % 0.4 % (0.0-2.0); EOS # 0.1 (0.0-0.7); GRAN # 6.2 (1.4-6.5); GRAN % 65.3 % (42.2-75.2); HEMATOCRIT 44.3 % (42.0-52.0); HEMOGLOBIN 14.4 g/dl (13.5-18.0); LYMPH # 2.5 (1.2-3.4); LYMPH % 25.9 % (20.0-51.0); MEAN CELL VOLUME 96 fl (80.0-100.0); MEAN CORPUSCULAR HEMOGLOBIN 31 pg (27.0-31.0); MEAN CORPUSCULAR HGB CONC 33 g/dl (33.0-37.0); MEAN PLATELET VOLUME 12.2 fl (7.4-10.4); MONO # 0.7 (0.1-0.6); MONO % 7.1 % (1.7-9.3); PLATELET COUNT 147 K/mm3 (130-400); RED BLOOD COUNT 4.62 M/mm3 (4.20-5.60); REDCELL DISTRIBUTION WIDTH-CV 13.3 % (11.5-14.5)
[2019-09-04 18:44] LABS: ALANINE AMINOTRANSFERASE < 6 U/L (21-72); ALBUMIN 4.2 gm/dL (3.5-5.0); ALKALINE PHOSPHATASE 77 U/L (50-136); ANION GAP 12 mmol/L (7-16); AST,SGOT 19 U/L (15-37); BILIRUBIN,TOTAL 1.4 mg/dL (0.0-1.0); BLOOD UREA NITROGEN 8 mg/dL (9-20); CALCIUM 9.2 mg/dL (8.4-10.2); CARBON DIOXIDE 27 mmol/L (22-30); CHLORIDE 105 mmol/L (98-107); GLUCOSE 148 mg/dL (74-106); POTASSIUM 4.1 mmol/L (3.4-5.0); SODIUM 143 mmol/L (137-145); TOTAL PROTEIN 7.8 gm/dL (6.4-8.2)
[2019-09-04 18:49] LABS: VALPROIC ACID (DEPAKENE) 41.6 ug/mL (50.0-100.0)
== END ==
LOC: ZCOL.LAB 14:24
PROVIDERS: Internal Medicine
DX: G40.909 Epilepsy, unspecified, not intractable, without status epilepticus (principal); R53.1 Weakness; R31.0 Gross hematuria

== ENCOUNTER → 2019-09-05 | Outpatient (CLI) | payer MEDICARE, MEDICAID ==
[2019-09-05 10:05] LABS: COLLECTION METHOD CLEAN CATCH
[2019-09-05 10:12] LABS: PH 7 (5-8); SQUAMOUS EPITHELIAL 0-2 /hpf; URINE APPEARANCE Clear; URINE BACTERIA None Seen /hpf; URINE BILIRUBIN Negative (NEGATIVE); URINE BLOOD 1+ (NEGATIVE); URINE COLOR Yellow; URINE GLUCOSE Negative (NEGATIVE); URINE KETONE Negative (NEGATIVE); URINE LEUKOCYTE ESTERASE Negative (NEGATIVE); URINE NITRATE Negative (NEGATIVE); URINE PROTEIN(semi-quant) Negative (NEGATIVE); URINE RBC 0-2 /hpf; URINE UROBILINOGEN >=4.0 mg/dL (NEGATIVE)
== END ==
LOC: ZCOL.LAB 09:24
PROVIDERS: Internal Medicine
DX: R31.0 Gross hematuria (principal)

== ENCOUNTER 2019-11-11 17:24 | Emergency (ER) | payer MEDICARE, MEDICAID ==
[~2019-11-11] VITALS: Ht 182.9 cm; Wt 102.3 kg
[2019-11-11 17:30] VITALS: BP 103/69; TEMP 97.6
[2019-11-11 19:02] LABS: BASO % 0.6 % (0.0-2.0); EOS # 0.2 (0.0-0.7); GRAN # 3.2 (1.4-6.5); GRAN % 49.6 % (42.2-75.2); HEMATOCRIT 41.9 % (42.0-52.0); HEMOGLOBIN 13.9 g/dl (13.5-18.0); LYMPH # 2.5 (1.2-3.4); LYMPH % 38.5 % (20.0-51.0); MEAN CELL VOLUME 92 fl (80.0-100.0); MEAN CORPUSCULAR HEMOGLOBIN 30 pg (27.0-31.0); MEAN CORPUSCULAR HGB CONC 33 g/dl (33.0-37.0); MEAN PLATELET VOLUME 11.8 fl (7.4-10.4); MONO # 0.5 (0.1-0.6); MONO % 8.1 % (1.7-9.3); PLATELET COUNT 144 K/mm3 (130-400); RED BLOOD COUNT 4.58 M/mm3 (4.20-5.60); REDCELL DISTRIBUTION WIDTH-CV 12.6 % (11.5-14.5)
[2019-11-11 19:16] LABS: ALBUMIN 3.9 gm/dL (3.5-5.0); BILIRUBIN,TOTAL 0.5 mg/dL (0.0-1.0); CALCIUM 8.9 mg/dL (8.4-10.2); CREATININE, serum 0.99 (0.66-1.25); TOTAL PROTEIN 7.4 gm/dL (6.4-8.2)
[2019-11-11 19:38] LABS: COLLECTION METHOD CLEAN CATCH
[2019-11-11 19:48] LABS: PH 6 (5-8); SQUAMOUS EPITHELIAL None Seen /hpf; URINE APPEARANCE Clear; URINE BACTERIA None Seen /hpf; URINE BILIRUBIN Negative (NEGATIVE); URINE BLOOD Negative (NEGATIVE); URINE COLOR Yellow; URINE GLUCOSE Negative (NEGATIVE); URINE KETONE Negative (NEGATIVE); URINE LEUKOCYTE ESTERASE Trace (NEGATIVE); URINE NITRATE Negative (NEGATIVE); URINE PROTEIN(semi-quant) Negative (NEGATIVE); URINE RBC 0-2 /hpf; URINE UROBILINOGEN Negative (NEGATIVE)
[2019-11-11 20:59] VITALS: PULSE 66
== END 2019-11-11 20:59 | disposition home or self-care (01) ==
LOC: COL.ER 17:24
PROVIDERS: Family Medicine
DX: B34.9 Viral infection, unspecified (principal); E86.0 Dehydration; M54.5 Low back pain
CPT/HCPCS: J1885; J7030

== ENCOUNTER 2019-12-11 22:55 | Emergency (ER) | payer MEDICARE, MEDICAID ==
[~2019-12-11] VITALS: Ht 182.9 cm; Wt 110.5 kg
[2019-12-11 23:13] VITALS: TEMP 97.4
[2019-12-12] MEDS ORDERED: CEPHALEXIN500 M1 PO (00:42)
[2019-12-12 00:58] VITALS: BP 107/74; PULSE 95
== END 2019-12-12 01:01 | disposition home or self-care (01) ==
LOC: COL.ER 22:55
DX: S01.311A Laceration without foreign body of right ear, initial encounter (principal); E11.9 Type 2 diabetes mellitus without complications; J44.9 Chronic obstructive pulmonary disease, unspecified; Z79.82 Long term (current) use of aspirin; Z79.84 Long term (current) use of oral hypoglycemic drugs; W18.39XA Other fall on same level, initial encounter; W22.8XXA Striking against or struck by other objects, initial encounter; Y92.009 Unspecified place in unspecified non-institutional (private) residence as the place of occurrence of the external cause

== ENCOUNTER 2019-12-26 17:02 | Emergency (ER) | payer MEDICARE, MEDICAID ==
[~2019-12-26] VITALS: Ht 182.9 cm; Wt 109.5 kg
[2019-12-26 17:08] VITALS: TEMP 97.7
[2019-12-26 17:37] LABS: BASO # 0.1 (0.0-0.2); BASO % 0.5 % (0.0-2.0); EOS # 0.2 (0.0-0.7); EOS % 2.3 % (0-4.0); GRAN # 5.9 (1.4-6.5); GRAN % 63.8 % (42.2-75.2); HEMATOCRIT 42.9 % (42.0-52.0); HEMOGLOBIN 14.1 g/dl (13.5-18.0); LYMPH # 2.5 (1.2-3.4); LYMPH % 26.7 % (20.0-51.0); MEAN CELL VOLUME 92 fl (80.0-100.0); MEAN CORPUSCULAR HEMOGLOBIN 30 pg (27.0-31.0); MEAN CORPUSCULAR HGB CONC 33 g/dl (33.0-37.0); MEAN PLATELET VOLUME 11.5 fl (7.4-10.4); MONO # 0.6 (0.1-0.6); MONO % 6.4 % (1.7-9.3); PLATELET COUNT 149 K/mm3 (130-400); RED BLOOD COUNT 4.66 M/mm3 (4.20-5.60); REDCELL DISTRIBUTION WIDTH-CV 13.2 % (11.5-14.5)
[2019-12-26 18:04] LABS: ALBUMIN 4.2 gm/dL (3.5-5.0); CALCIUM 9.1 mg/dL (8.4-10.2); CREATININE, serum 0.97 (0.66-1.25); POTASSIUM 4.4 mmol/L (3.4-5.0); TOTAL PROTEIN 8.1 gm/dL (6.4-8.2)
[2019-12-26 18:34] LABS: COLLECTION METHOD CLEAN CATCH
[2019-12-26 18:42] LABS: PH 6 (5-8); SQUAMOUS EPITHELIAL None Seen /hpf; URINE APPEARANCE Clear; URINE BACTERIA None Seen /hpf; URINE BILIRUBIN Negative (NEGATIVE); URINE BLOOD Negative (NEGATIVE); URINE COLOR Yellow; URINE GLUCOSE Negative (NEGATIVE); URINE KETONE Negative (NEGATIVE); URINE LEUKOCYTE ESTERASE Negative (NEGATIVE); URINE NITRATE Negative (NEGATIVE); URINE PROTEIN(semi-quant) Negative (NEGATIVE); URINE RBC 0-2 /hpf
[2019-12-26] MEDS ORDERED: OMNICEF 300MG300 MG PO (19:28)
[2019-12-26 19:46] VITALS: BP 106/58; PULSE 76
== END 2019-12-26 19:52 | disposition home or self-care (01) ==
LOC: COL.ER 17:02
PROVIDERS: Emergency Medicine
DX: R53.1 Weakness (principal); E11.9 Type 2 diabetes mellitus without complications; J44.9 Chronic obstructive pulmonary disease, unspecified; Z79.82 Long term (current) use of aspirin; Z79.84 Long term (current) use of oral hypoglycemic drugs
CPT/HCPCS: J7030

== ENCOUNTER 2020-08-18 17:57 | Inpatient (IN) | payer MEDICARE, MEDICAID ==
[~2020-08-18] VITALS: Ht 188 cm; Wt 103.1 kg
[~2020-08-18 17:57] MED LIST changes: +OMNICEF 300MG300 MG PO
[2020-08-18 18:45] LABS: BASO % 0.4 % (0.0-2.0); EOS # 0.2 (0.0-0.7); EOS % 2.1 % (0-4.0); GRAN # 4.1 (1.4-6.5); GRAN % 49.6 % (42.2-75.2); HEMATOCRIT 42.9 % (42.0-52.0); HEMOGLOBIN 14.2 g/dl (13.5-18.0); LYMPH # 3.4 (1.2-3.4); MEAN CELL VOLUME 93 fl (80.0-100.0); MEAN CORPUSCULAR HEMOGLOBIN 31 pg (27.0-31.0); MEAN CORPUSCULAR HGB CONC 33 g/dl (33.0-37.0); MONO # 0.6 (0.1-0.6); MONO % 6.7 % (1.7-9.3); PLATELET COUNT 160 K/mm3 (130-400); RED BLOOD COUNT 4.63 M/mm3 (4.20-5.60); REDCELL DISTRIBUTION WIDTH-CV 12.8 % (11.5-14.5)
[2020-08-18] MEDS ORDERED: TOBRADEX EYE DRO5 ML OU (18:53)
[2020-08-18] MEDS ORDERED: ACULAR LS 5 ML5 ML OU (18:53)
[2020-08-18] MEDS ORDERED: LIPITOR20 MG PO (18:54)
[2020-08-18 18:56] LABS: ALBUMIN 4.1 gm/dL (3.5-5.0); BILIRUBIN,TOTAL 0.8 mg/dL (0.0-1.0); CALCIUM 8.7 mg/dL (8.4-10.2); CREATININE, serum 0.88 (0.66-1.25); POTASSIUM 3.8 mmol/L (3.4-5.0); TOTAL PROTEIN 7.5 gm/dL (6.4-8.2)
[2020-08-18] MEDS ORDERED: MOBIC 7.5MG7.5 MG PO (19:13)
[2020-08-18] MEDS ORDERED: ASPIRIN E.C. 8181 MG PO (19:44)
[2020-08-18] MEDS ORDERED: PROTONIX 40MG T40 MG PO (19:46)
[2020-08-18 21:35] VITALS: BP 113/57; PULSE 66; TEMP 98.2
[2020-08-18 22:46] VITALS: BP 105/63; PULSE 60; TEMP 97.7
[2020-08-19 04:44] VITALS: BP 99/66; PULSE 73; TEMP 98.4
--- NOTE | 2020-08-19 05:44 | NUR ---
Patient admitted from ED. 5 page and med rec completed. Patient's son translates as patient is lao speaking only. Noted to be weak and not very talkative with staff. IV antibiotics started this shift. Lung sounds diminished. Patient ambulates with son to bathroom. Urine specimen sent to lab. Evening medications given to patient. Swallows them whole with water and no noted coughing with this. Fluids continue to right forearm. Accuchecks ordered q6 and have been within normal limits. Will continue to monitor patient.
[2020-08-19 07:37] LABS: BASO % 0.5 % (0.0-2.0); EOS # 0.1 (0.0-0.7); EOS % 1.9 % (0-4.0); GRAN # 3.2 (1.4-6.5); GRAN % 57.4 % (42.2-75.2); HEMATOCRIT 42.2 % (42.0-52.0); HEMOGLOBIN 13.9 g/dl (13.5-18.0); LYMPH # 1.9 (1.2-3.4); LYMPH % 32.9 % (20.0-51.0); MEAN CELL VOLUME 94 fl (80.0-100.0); MEAN CORPUSCULAR HEMOGLOBIN 31 pg (27.0-31.0); MEAN CORPUSCULAR HGB CONC 33 g/dl (33.0-37.0); MEAN PLATELET VOLUME 11.1 fl (7.4-10.4); MONO # 0.4 (0.1-0.6); MONO % 6.9 % (1.7-9.3); PLATELET COUNT 156 K/mm3 (130-400); REDCELL DISTRIBUTION WIDTH-CV 13.1 % (11.5-14.5)
[2020-08-19 07:55] LABS: ALBUMIN 3.8 gm/dL (3.5-5.0); BILIRUBIN,TOTAL 0.8 mg/dL (0.0-1.0); CALCIUM 8.8 mg/dL (8.4-10.2); CREATININE, serum 0.86 (0.66-1.25); POTASSIUM 4.1 mmol/L (3.4-5.0)
[2020-08-19 08:14] VITALS: BP 107/60; PULSE 68; TEMP 97.8
--- NOTE | 2020-08-19 11:10 | NUR ---
Patient alert, oriented but limited assessment d/t son translating questions. Lungs CTA, no c/o SOA. VS WNL. No c/o pain or discomfort.
[2020-08-19 11:52] VITALS: BP 120/73; PULSE 62; TEMP 97.5
--- NOTE | 2020-08-19 12:36 | NUR ---
Dr Vail here to see patient.
[2020-08-19 15:53] VITALS: BP 119/67; PULSE 57; TEMP 97.7
--- NOTE | 2020-08-19 16:41 | NUR ---
Title I Coordinator met with patient and patient's son, Amish (ph#[phone]) to discuss discharge planning. Patient lives in [place] with his son Amish and sees Dr. Charles for primary care. Amish advised that patient is and has five children: Amish, Enrique, Bora, Cheryl, and Pura. Amish reports that patient is never left alone as the siblings always make sure someone is with the patient. Patient has a cane at home but does not like to use it. Amish reports patient is mostly independent with ADLS but occasionally needs assistance which is provided by family. Amish states he thinks patient may have DPOA-HC completed but isn't sure. Plan is for patient to return home at discharge. JENNIFER contacted Dr. Charles's office and they do not have DPOA paperwork for patient. JENNIFER will continue to follow.
[2020-08-19 19:42] VITALS: BP 113/70; PULSE 65; TEMP 98.7
[2020-08-20 00:39] VITALS: BP 132/73; PULSE 69; TEMP 97.8
[2020-08-20 04:18] VITALS: BP 112/65; PULSE 75; TEMP 98
[2020-08-20 07:10] VITALS: BP 98/44; PULSE 77; TEMP 98.6
[2020-08-20 07:42] LABS: BASO % 0.4 % (0.0-2.0); EOS # 0.1 (0.0-0.7); EOS % 1.2 % (0-4.0); GRAN # 4.2 (1.4-6.5); GRAN % 62.2 % (42.2-75.2); HEMATOCRIT 43.6 % (42.0-52.0); HEMOGLOBIN 14.5 g/dl (13.5-18.0); MEAN CELL VOLUME 94 fl (80.0-100.0); MEAN CORPUSCULAR HEMOGLOBIN 31 pg (27.0-31.0); MEAN CORPUSCULAR HGB CONC 33 g/dl (33.0-37.0); MEAN PLATELET VOLUME 11.6 fl (7.4-10.4); MONO # 0.4 (0.1-0.6); MONO % 5.9 % (1.7-9.3); PLATELET COUNT 158 K/mm3 (130-400); RED BLOOD COUNT 4.64 M/mm3 (4.20-5.60); REDCELL DISTRIBUTION WIDTH-CV 13.2 % (11.5-14.5)
[2020-08-20 07:53] LABS: CALCIUM 8.6 mg/dL (8.4-10.2); CREATININE, serum 0.83 (0.66-1.25); POTASSIUM 3.8 mmol/L (3.4-5.0)
--- NOTE | 2020-08-20 08:00 | NUR ---
Patient in bed resting. Alert and partially oriented. IV to left hand. Denies pain pain at this time. Takes medications whole without complications. Lequire thick liquids. Assessment complete. Denies further needs at this time. Will continue to monitor.
--- NOTE | 2020-08-20 10:19 | NUR ---
Machine Adjuster Helper contacted the patient son, Amish to discuss the discharge plan. SW discussed HHS with Amish. He states the patient has had [facility] in the past and would like the patient to have services again. SW contacted [facility]. They have had the patient in the past and discharged him on 09/27/2019. JENNIFER faxed referral. The [facility] CHASSIS MECHANIC team will review the referral then inform this SW. JENNIFER collaborated the above information with the patient's nurse and PA.
--- NOTE | 2020-08-20 10:44 | NUR ---
Initial visit; Patient thanked Plaster Machine Tender with a nod and smile for offering prayer and God's blessings.
[2020-08-20 11:21] VITALS: BP 100/65; PULSE 74; TEMP 98
--- NOTE | 2020-08-20 12:30 | NUR ---
Notified hospitalist, patients daughter is here to see patient for discharge.
[2020-08-20] MEDS ORDERED: OMNICEF 300MG300 MG PO (13:02)
--- NOTE | 2020-08-20 13:20 | NUR ---
Discharge education provided to patient and daughter. Educated on use of IS, patient demonstrated back teaching. Educated on follow up appointment and when to call provider. Teaching on mechanical soft diet and nectar thick liquids. All questions answered. INT to discontinued, catheter tip intact. Patient denies further needs at this time.
--- NOTE | 2020-08-20 15:31 | NUR ---
The patient discharged home today, 08/20 with [facility]. PT/OT/Nursing. Optics Test Technician contacted Diallo with [facility] and he reports they can accept the patient for services. SW faxed discharge orders. No additional needs at this time.
== END 2020-08-20 13:25 | disposition home health service (06) | DRG 179 ==
LOC: COL.ER 17:57 → SURG 19:53
PROVIDERS: Family Medicine; Physician Assistant
DX: J69.0 Pneumonitis due to inhalation of food and vomit (principal); E03.9 Hypothyroidism, unspecified; E11.9 Type 2 diabetes mellitus without complications; J44.9 Chronic obstructive pulmonary disease, unspecified; R09.02 Hypoxemia; F32.9 Major depressive disorder, single episode, unspecified; K21.9 Gastro-esophageal reflux disease without esophagitis; R13.10 Dysphagia, unspecified; Z86.73 Personal history of transient ischemic attack (TIA), and cerebral infarction without residual deficits; Z79.84 Long term (current) use of oral hypoglycemic drugs; Z87.891 Personal history of nicotine dependence
CPT/HCPCS: 99222-AI; 99232-AI; 99239; J0295; J1650; J2543; J7030; J7120

== ENCOUNTER 2020-09-22 15:30 | Inpatient (IN) | payer MEDICARE, MEDICAID ==
[~2020-09-22] VITALS: Ht 188 cm; Wt 88.2 kg
[2020-09-22 11:40] VITALS: BP 117/82; PULSE 89; TEMP 100.8
[~2020-09-22 15:30] MED LIST changes: +ACULAR LS 5 ML5 ML OU; +LIPITOR20 MG PO; +TOBRADEX EYE DRO5 ML OU
[2020-09-22 16:07] LABS: BASO % 0.4 % (0.0-2.0); EOS # 0.1 (0.0-0.7); EOS % 0.6 % (0-4.0); GRAN # 7.3 (1.4-6.5); GRAN % 73.4 % (42.2-75.2); HEMATOCRIT 46.4 % (42.0-52.0); HEMOGLOBIN 15.5 g/dl (13.5-18.0); LYMPH # 1.6 (1.2-3.4); LYMPH % 16.4 % (20.0-51.0); MEAN CELL VOLUME 93 fl (80.0-100.0); MEAN CORPUSCULAR HEMOGLOBIN 31 pg (27.0-31.0); MEAN CORPUSCULAR HGB CONC 33 g/dl (33.0-37.0); MEAN PLATELET VOLUME 11.6 fl (7.4-10.4); MONO # 0.9 (0.1-0.6); MONO % 8.7 % (1.7-9.3); PLATELET COUNT 189 K/mm3 (130-400); RED BLOOD COUNT 4.98 M/mm3 (4.20-5.60); REDCELL DISTRIBUTION WIDTH-CV 13.1 % (11.5-14.5)
[2020-09-22 16:10] LABS: ALANINE AMINOTRANSFERASE 21 U/L (4-49); ALBUMIN 4.6 gm/dL (3.5-5.0); ALKALINE PHOSPHATASE 107 U/L (50-136); ANION GAP 14 mmol/L (7-16); AST,SGOT 36 U/L (15-37); BILIRUBIN,TOTAL 0.9 mg/dL (0.0-1.0); BLOOD UREA NITROGEN 8 mg/dL (9-20); C-REACTIVE PROTEIN 1.5 mg/dL (0.0-0.9); CALCIUM 9.4 mg/dL (8.4-10.2); CARBON DIOXIDE 24 mmol/L (22-30); CHLORIDE 107 mmol/L (98-107); CREATININE, serum 1.18 (0.66-1.25); GLUCOSE 120 mg/dL (74-106); POTASSIUM 4.2 mmol/L (3.4-5.0); SODIUM 145 mmol/L (137-145); TOTAL PROTEIN 8.6 gm/dL (6.4-8.2)
[2020-09-22 16:25] LABS: TROPONIN-I < 0.012 ng/mL (0.000-0.035)
[2020-09-22 16:29] LABS: COLLECTION METHOD CATHETER
[2020-09-22 16:34] LABS: PH 8 (5-8); SQUAMOUS EPITHELIAL None Seen /hpf; URINE APPEARANCE Clear; URINE BACTERIA None Seen /hpf; URINE BILIRUBIN Negative (NEGATIVE); URINE BLOOD 1+ (NEGATIVE); URINE COLOR Yellow; URINE GLUCOSE Negative (NEGATIVE); URINE KETONE Negative (NEGATIVE); URINE LEUKOCYTE ESTERASE Negative (NEGATIVE); URINE NITRATE Negative (NEGATIVE); URINE PROTEIN(semi-quant) Negative (NEGATIVE)
[2020-09-22 20:00] VITALS: BP 115/70; PULSE 87; TEMP 98.7
--- NOTE | 2020-09-22 20:15 | NUR ---
Patient to medical room 306 at this time, accompanied by ER nurse Fang. He appears drowsy but wakes to voice. He is [place] citizen-speaking but seems to understand yes/no questions. [id number] Maricarmen and Judd are contacted to gather information on home medications and health history, as patient is unable to do so. Fluids initiated. Will continue to monitor.
--- NOTE | 2020-09-22 20:30 | NUR ---
Patient health history and medication list obtained from Judd and Amish,[id number] and son, who are his primary caretakers.
[2020-09-23] VITALS (9 sets, daily range): BP systolic 96–135; BP diastolic 60–82; PULSE 64–96; TEMP 98.1–102
--- NOTE | 2020-09-23 | NUR ---
Patient has been incontinent of large amounts of urine three times. His groin area is severely reddened. KEIRY Gregorio notified and order is obtained for Desenex powder and to insert a fong to decrease moisture in tj-area.
--- NOTE | 2020-09-23 03:20 | NUR ---
Chávez inserted due to excessive output and incontinence skin breakdown. 500 ml clear, yellow urine drained at time of insertion. STAT lock in place. Patient tolerated procedure well. Will continue to monitor.
--- NOTE | 2020-09-23 07:40 | NUR ---
REPORT RECEIVED. PT APPEARS SLEEPING. CAMERA ON AT BEDSIDE WELL.
--- NOTE | 2020-09-23 08:59 | NUR ---
MORNING MEDS GIVEN. PT ABLE TO SWALLOW PILLS ONE A TIME WITH WATER/MILK/JUICE. WILL CLARIFY LIQUID THICKNESS ORDERS. WEAK OCCASIONAL COUGH. LUNGS CLEAR DIMINISHED THROUGHOUT. DENIED PAIN. DID WAKE UP TO INTERRACT. WAS ASSISTED WITH BREAKFAST AND ATE 60% THEN SAID HE'D HAD ENOUGH. SCDS ON AND LOVENOX GIVEN. ATTEMPTED TO COLLECT LAB WITH MULTIPLE TRIALS WITH NO SUCCESS. LAB CALLED AND REQUESTED TO DRAW. FAMILY CALLED AND UPDATED ON CARE. THEY REPORT PT MUMBLING AND TREMOR TO FACE AND ARMS IS BASELINE.
[2020-09-23 09:37] LABS: BASO % 0.4 % (0.0-2.0); EOS # 0.1 (0.0-0.7); EOS % 2.3 % (0-4.0); GRAN # 3.2 (1.4-6.5); GRAN % 56.7 % (42.2-75.2); HEMATOCRIT 44.4 % (42.0-52.0); HEMOGLOBIN 14.6 g/dl (13.5-18.0); LYMPH # 1.6 (1.2-3.4); LYMPH % 28.3 % (20.0-51.0); MEAN CELL VOLUME 96 fl (80.0-100.0); MEAN CORPUSCULAR HEMOGLOBIN 32 pg (27.0-31.0); MEAN CORPUSCULAR HGB CONC 33 g/dl (33.0-37.0); MEAN PLATELET VOLUME 11.7 fl (7.4-10.4); MONO # 0.7 (0.1-0.6); MONO % 11.8 % (1.7-9.3); PLATELET COUNT 148 K/mm3 (130-400); RED BLOOD COUNT 4.64 M/mm3 (4.20-5.60); REDCELL DISTRIBUTION WIDTH-CV 13.4 % (11.5-14.5)
[2020-09-23 09:55] LABS: ALBUMIN 4.1 gm/dL (3.5-5.0); BILIRUBIN,TOTAL 0.8 mg/dL (0.0-1.0); CALCIUM 8.9 mg/dL (8.4-10.2); CREATININE, serum 1.06 (0.66-1.25); POTASSIUM 3.6 mmol/L (3.4-5.0); TOTAL PROTEIN 7.7 gm/dL (6.4-8.2)
--- NOTE | 2020-09-23 13:54 | NUR ---
PT RESTLESS AND SEEN OVER CAMERA FIDGETING WITH RAD DESAI AND HE HAD TAKEN GOWN OFF. WAS ATTEMPTING TO SIT UP AND THREW LEGS TO SIDE. PRN KLONOPIN GIVEN FOR PT COMFORT. DESAI INTACT AND DRAINING. ROMANIAN TRANSLATED ABLE AND PT ABLE TO COMMUNICATE ALBEIT MINIMALLY.
--- NOTE | 2020-09-23 15:22 | NUR ---
PT IN DEEP SLEEP. O2 SAT 91% ON RA
--- NOTE | 2020-09-23 16:19 | NUR ---
The patient is positive for COVID and mostly georgian speaking. SW contacted the patient's son, Amish (ph#[phone]), to complete intake. The patient lives in [place] with Amish and Amish's , Jesica. He states that his sister helps take care of the patient during the day. He states that there are five family members in all that help take care of the patient. Amish states that the patient sometimes needs assistance with using the restroom and bathing. He states that they help the patient with his. The patient has a cane, but does not like to use it. The patient's PCP is Dr. Tesfaye Charles and he receives his medications at [facility]. Amish reports no difficulties obtaining his meds. The patient does not have a DPOA-HC in EMR. Amish reports that he thinks the patient has one completed, but he needs to ask his where it is located. He states that the patient's is and that the patient has nine children. Four of them live in [place], one in [place], and four in [place]. Amish reports that the plan is for the patient to return back home upon discharge. SW to continue to follow as needed.
--- NOTE | 2020-09-23 18:45 | NUR ---
END OF SHIFT NOTE: PT TUGGED FREQUENTLY AT DESAI AND NOW HAS A FEW STREAKS BUT NO ACTIVE BLEEDING. STAT LOCK ADJUSTED AND LESS TUGGING NOTED. ASSISTED AGAIN WITH DINNER AND ONLY ATE 20%. WAS SLEEPY AT BEGINNING OF SHIFT, BECAME MORE ALERT DAY WENT ON AND BACK TO BEING SLEEPY DURING DINNER. CLARIFIED TO BE ON NECTAR THICK LIQUIDS. DESAI OUTPUT THIS SHIFT >2500. VERY GOOD INTAKE AND WILL FEED SELF WITH DRINKS AT BEDSIDE. ASPIRATION PRECAUTIONS IN PLACE. LEFT SITTING UP 30 MINS AFTER MEALS. DRINKS NOT WITHIN REACH WHEN LYING DOWN BUT OFFERED EVERY HOUR. SPEECH THERAPY CONSULTED. ELEVATED TEMPS THIS SHIFT WITH T-MAX 102 AXILLARY @ 1645 WITH TYLENOL AND RECHECK @ 1800 100.6 AXILLARY. ROOM ALSO WARM AND TEMP ADJUSTED. TEMPS AND CONDITION DISCUSSED WITH DOC. PRN TYLENOL AVAILABLE. POWDER APPLIED TO GROIN REDNESS. NO BM THIS SHIFT. WOULD ANSWER QUESTIONS IN MACEDONIAN EARLIER IN DAY. REPORT GIVEN TO ONCOMING NURSE.
--- NOTE | 2020-09-23 19:05 | NUR ---
Report received from CAMPOS Friedman. Pt lying in bed, denies needs at this time. Call light in reach. Will continue to monitor.
--- NOTE | 2020-09-23 22:30 | NUR ---
Shift assessment complete. Pt asleep in bed. Rouses to voice and touch. Follows commands. Heart rate and rhythm regular. Lungs sounds coarse to auscultation. On 2 L O2 NC with O2 saturations in mid-90s. Reddened area in groin, Miconazole powder applied to area. Zosyn infusion started at 25 ml/hr. Chávez catheter in place with orange output. Afebrile at this time. SCDs in place to BLE. Seizure precautions and video monitoring in place. Will continue to monitor.
[2020-09-24 03:23] VITALS: BP 108/64; PULSE 93; TEMP 97.8
[2020-09-24 08:40] VITALS: BP 96/50; PULSE 97; TEMP 98.9
[2020-09-24 11:53] LABS: BASO % 0.2 % (0.0-2.0); EOS % 0.4 % (0-4.0); GRAN # 3.2 (1.4-6.5); HEMOGLOBIN 14.6 g/dl (13.5-18.0); LYMPH # 1.7 (1.2-3.4); LYMPH % 31.6 % (20.0-51.0); MEAN CELL VOLUME 95 fl (80.0-100.0); MEAN CORPUSCULAR HEMOGLOBIN 31 pg (27.0-31.0); MEAN CORPUSCULAR HGB CONC 32 g/dl (33.0-37.0); MEAN PLATELET VOLUME 11.9 fl (7.4-10.4); MONO # 0.5 (0.1-0.6); MONO % 8.6 % (1.7-9.3); PLATELET COUNT 143 K/mm3 (130-400); RED BLOOD COUNT 4.72 M/mm3 (4.20-5.60); REDCELL DISTRIBUTION WIDTH-CV 13.6 % (11.5-14.5)
[2020-09-24 11:58] LABS: CALCIUM 8.5 mg/dL (8.4-10.2); CREATININE, serum 0.9 (0.66-1.25); POTASSIUM 3.7 mmol/L (3.4-5.0)
[2020-09-24 12:13] VITALS: BP 120/68; PULSE 78; TEMP 98.3
--- NOTE | 2020-09-24 15:34 | NUR ---
PT/OT is recommending SNF vs home with 24/7 care, depending on families comfort level. The patient was currently a mod assist x 2 with PT. SW contacted the patient's son, Amish, to update and inform him of therapies eval and recommendation. SW also informed Amish how placement may be limited, with him being postitive for COVID. Amish verbalized understanding. He states that he would want the patient to stay around here. Amish states that he needs to talk to his family first, before making a decision. SW to follow up with Amish tomorrow, 09/25.
[2020-09-24 15:53] VITALS: BP 112/76; PULSE 89; TEMP 99.4
[2020-09-24 19:17] VITALS: BP 98/64; PULSE 73; TEMP 98.6
--- NOTE | 2020-09-24 19:36 | NUR ---
Patient appear alert sometimes, unable to assess orientation, Dr Díaz stated patient on 1/2NS 20MEQ Potassium at 75mL/HR. on Room air at 91%. remain afebrile, no diarrhea. Chávez catheter in place. Speech therapy examined patient, fluids are nectar thick. Patient refuse to keep SCD's after lunch hour. patient sat at [facility] twice today with PT and OT. Resting in bed at this time
--- NOTE | 2020-09-24 20:00 | NUR ---
Assessment complete. Patient is awake in bed but appears drowsy. He shows no increased work of breathing and is tolerating room air well, satting at 91%. His son Amish is contacted while this RN is in the room and speaks with patient, as well as receives an update from this RN. Patient is afebrile at this time and swallows pills whole with nectar thick water. Comfort measures are provided. 1/2 NS with 20 meQ KCL running into right forearm IV. Will continue to monitor.
[2020-09-24 23:46] VITALS: BP 108/72; PULSE 67; TEMP 98.2
--- NOTE | 2020-09-25 00:05 | NUR ---
Patient incontinent of large, liquid BM at this time. Linens changed and partial bed bath provided. IV zosyn infusing.
[2020-09-25 03:49] VITALS: BP 100/62; PULSE 71; TEMP 99.2
[2020-09-25 08:33] VITALS: BP 130/84; PULSE 75
--- NOTE | 2020-09-25 10:59 | NUR ---
Assessment completed, alert/ orientation hard to assess as patient is new zealander speaking only, he is however cooperative and follows commands appropriately, contineus to have loose watery stools, lungs are CTA/diminished, no resp.difficulty noted and he is on room air, O2 sats are WNL, will continue to monitor
[2020-09-25 11:56] VITALS: BP 104/68; PULSE 78
[2020-09-25 13:11] LABS: BASO % 0.1 % (0.0-2.0); CALCIUM 8.4 mg/dL (8.4-10.2); CREATININE, serum 0.82 (0.66-1.25); GRAN # 5.8 (1.4-6.5); GRAN % 82.4 % (42.2-75.2); HEMATOCRIT 40.7 % (42.0-52.0); HEMOGLOBIN 13.4 g/dl (13.5-18.0); LYMPH # 0.9 (1.2-3.4); LYMPH % 12.9 % (20.0-51.0); MEAN CELL VOLUME 95 fl (80.0-100.0); MEAN CORPUSCULAR HEMOGLOBIN 31 pg (27.0-31.0); MEAN CORPUSCULAR HGB CONC 33 g/dl (33.0-37.0); MEAN PLATELET VOLUME 12.4 fl (7.4-10.4); MONO # 0.3 (0.1-0.6); MONO % 4.5 % (1.7-9.3); PLATELET COUNT 114 K/mm3 (130-400); POTASSIUM 3.6 mmol/L (3.4-5.0); REDCELL DISTRIBUTION WIDTH-CV 13.2 % (11.5-14.5)
[2020-09-25 15:11] VITALS: BP 114/60; PULSE 87; TEMP 97.6
[2020-09-25 20:00] VITALS: BP 118/78; PULSE 80; TEMP 97.1
--- NOTE | 2020-09-25 20:00 | NUR ---
Assessment complete. Patient is resting in bed and becomes alert when spoken to. He does not appear to be in pain. No edema is present. Indwelling catheter is draining slightly pink urine, as patient often tugs on the line. 1/2 NS with 20 KCL infusing. Comfort measures provided. Patient is satting 92% on RA. Will continue to monitor.
--- NOTE | 2020-09-26 | NUR ---
Patient showing signs of increased anxiety and agitation. PRN anxiety medication administered. Patient is now restful and appears comfortable in bed.
[2020-09-26 04:00] VITALS: BP 124/88; PULSE 83; TEMP 98.1
[2020-09-26 04:54] LABS: BASO % 0.1 % (0.0-2.0); GRAN # 5.3 (1.4-6.5); GRAN % 71.2 % (42.2-75.2); HEMATOCRIT 40.7 % (42.0-52.0); HEMOGLOBIN 13.4 g/dl (13.5-18.0); LYMPH # 1.7 (1.2-3.4); LYMPH % 23.3 % (20.0-51.0); MEAN CELL VOLUME 93 fl (80.0-100.0); MEAN CORPUSCULAR HEMOGLOBIN 31 pg (27.0-31.0); MEAN CORPUSCULAR HGB CONC 33 g/dl (33.0-37.0); MEAN PLATELET VOLUME 11.9 fl (7.4-10.4); MONO # 0.4 (0.1-0.6); MONO % 5.1 % (1.7-9.3); PLATELET COUNT 136 K/mm3 (130-400); RED BLOOD COUNT 4.36 M/mm3 (4.20-5.60); REDCELL DISTRIBUTION WIDTH-CV 13.1 % (11.5-14.5)
[2020-09-26 05:00] LABS: CALCIUM 8.4 mg/dL (8.4-10.2); CREATININE, serum 0.78 (0.66-1.25); POTASSIUM 3.1 mmol/L (3.4-5.0)
[2020-09-26 05:50] LABS: CLOSTRIDIUM DIFF A/B NEG; CLOSTRIDIUM DIFF A/B INTERP No C.diff present
[2020-09-26 08:57] VITALS: BP 126/68; PULSE 69; TEMP 98.5
--- NOTE | 2020-09-26 10:30 | NUR ---
SW contacted the patient's son, Amish, to follow up on decision for home with 14/06 family support vs SNF. Amish reports that they would be interested in SNF in [place]. SW informed Amish that with the patient being COVID positive, that facilities taking positive patient's is limited and that we would have to send referrals outside of [place]. Amish states that he needs to call his family members and talk to them again about this. He asks that SW contact him back this afternoon. Amish states that him and his family members are going to [facility] today to get tested.
--- NOTE | 2020-09-26 11:27 | NUR ---
Assessment complete. Patient sitting up in bed asleep on entry. He was difficult to wake, visible tremor in arms when sleeping. Patient was able to take pills well with nectar thick liquids. PAtient did not respond verbally to any of my communication. No signs of pain or discomfort. PAtient does have hands near fong at all times, usrine remains light pink at this time. IV sites are intact with no signs of issues. Fluids with potassium continue to run at this time. Will continue to monitor. Bed alarm is set. CAll light is in reach.
[2020-09-26 11:58] VITALS: BP 128/76; PULSE 86; TEMP 99.2
[2020-09-26 17:04] VITALS: BP 101/70; PULSE 103; TEMP 98.4
--- NOTE | 2020-09-26 18:22 | NUR ---
Patient had an uneventful shift. No obvious signs of pain or discomfort were expressed. Chávez remains patent drainging pink to red urine. Patient attempts to speak with me but language barrier is not the main issues, patient mumbles very much and it is hard to hear what he is trying to say. All meds were taken very well. IV sites are CD&I. Baby monitor in place to monitor patient. Will continue to do so. Call light is in reach.
[2020-09-26 20:15] VITALS: BP 152/84; PULSE 86; TEMP 98.3
[2020-09-26 23:33] VITALS: BP 122/72; PULSE 76
[2020-09-27] VITALS: TEMP 98
[2020-09-27 01:25] LABS: CALCIUM 8.8 mg/dL (8.4-10.2); CREATININE, serum 0.74 (0.66-1.25); POTASSIUM 3.1 mmol/L (3.4-5.0)
--- NOTE | 2020-09-27 01:44 | NUR ---
Received report from CAMPOS Gómez. Pt son called wanting to speak with pt. Phoned son Isidoro and allowed him to speak with pt over speakerphone. Pt is wolof speaking, understands very little mosotho but able to follow commands. Speech is mumbled and difficult to understand. Denies any pain or discomfort at this time. Chávez cath intact, draining clear pink urine. IV to RFA intact, with fluids infusing. INT to RAC intact, flushed, dressing CDI. Pt incontinent of bowel, had diarrhea x2, pt cleaned, changed, and repositioned. Water provided as requested by pt, nectar thickened. Chávez cath was pulled out by pt. Chávez was replaced, urine collected per orders, tolerated well, secured to RL. Will monitor pt. Bed alarm set.
[2020-09-27 04:56] VITALS: BP 128/80; PULSE 86; TEMP 98.2
--- NOTE | 2020-09-27 06:11 | NUR ---
Pt had diarrhea x2 on this shift. Afebrile. Pt continuosly requested water, water provided, nectar thickened. Meds administered. Bed alarm set.
--- NOTE | 2020-09-27 06:49 | NUR ---
Report given to CAMPOS Gómez.
[2020-09-27 08:00] VITALS: BP 138/74; PULSE 77; TEMP 99.5
[2020-09-27 11:07] LABS: BASO % 0.3 % (0.0-2.0); EOS % 0.3 % (0-4.0); GRAN # 4.7 (1.4-6.5); HEMATOCRIT 42.4 % (42.0-52.0); HEMOGLOBIN 14.1 g/dl (13.5-18.0); LYMPH % 28.3 % (20.0-51.0); MEAN CELL VOLUME 94 fl (80.0-100.0); MEAN CORPUSCULAR HEMOGLOBIN 31 pg (27.0-31.0); MEAN CORPUSCULAR HGB CONC 33 g/dl (33.0-37.0); MEAN PLATELET VOLUME 12.2 fl (7.4-10.4); MONO # 0.4 (0.1-0.6); MONO % 5.8 % (1.7-9.3); PLATELET COUNT 122 K/mm3 (130-400); RED BLOOD COUNT 4.52 M/mm3 (4.20-5.60); REDCELL DISTRIBUTION WIDTH-CV 13.5 % (11.5-14.5)
[2020-09-27 11:29] LABS: CALCIUM 8.7 mg/dL (8.4-10.2); CREATININE, serum 0.81 (0.66-1.25)
[2020-09-27 11:33] LABS: POTASSIUM 2.9 mmol/L (3.4-5.0)
--- NOTE | 2020-09-27 11:52 | NUR ---
Assessment complete. Patient laying in bed, drowsy on entry. Patient speaks to me in montenegrin but words are very mumbled. He was able to say that he was good. Patient appears to be comfortable, no signs of pain or discomfort. Fong is patent draining carr red/pink urine likely due to trauma as patient pulled out the fong overnight. PICC was placed for easier vasular access, patient tolerated well. Patient had a large incontinent bowel movement this morning. Full bed change provided. Patient is now comfortable in bed at this time. Contnuing to monitor. Call light is in reach. Fall precautions in place.
[2020-09-27 12:08] VITALS: BP 112/68; PULSE 87; TEMP 99
--- NOTE | 2020-09-27 14:50 | NUR ---
JENNIFER contacted the patient's son, Amish, to follow up on his and his family's decision for post-acute rehab vs home. Amish reports that him and his family would like to pursue SNF or and inpatient rehab for the patient, even with it being out of [place]. JENNIFER consulted [facility] Director, Karina. [facility] is unable to take any positive patient at this time. JENNIFER gave a referral to Ana Rosa at [facility]. Referrals to be faxed to [facility] and [facility] in [place]. JENNIFER staffed with the hospitalist. The patient is to tentatively be here through the weekend. SW awaiting screens.
[2020-09-27 18:20] VITALS: BP 105/77; PULSE 83; TEMP 98.9
--- NOTE | 2020-09-27 18:27 | NUR ---
Patient had a good shift. NO issues with fong. No signs of pain or discomfort other than the fong. Patient continues to ddrinks copious amounts of water but sodium has improved. Spoke with son over the phone and gave his an update. On last set of vitals patient O2 was a steady 86%, placed pt on 2L O2 /NC and O@ came up to 89-90% which is okay per dr orders. Will continue to monitor. CAll light is in reach. FAll precautions are in place.
[2020-09-27 19:56] VITALS: BP 120/78; PULSE 89; TEMP 98.7
--- NOTE | 2020-09-27 20:15 | NUR ---
Night meds given. Oral care provided. Patient not in distress. No facial grimace. No pain.
--- NOTE | 2020-09-27 21:40 | NUR ---
Changed patient's diaper and repositioned patient. Pericare provided.
--- NOTE | 2020-09-28 00:24 | NUR ---
Patient's repeat potassium is 3.2. Will replace with IV Potassium since patient is on central line and on aspiration precaution. He doesn't have telemetry orders. This nurse called Meaghan and she ordered telemetry for patient.
[2020-09-28 00:53] VITALS: BP 115/78; PULSE 70; TEMP 97.4
--- NOTE | 2020-09-28 01:00 | NUR ---
Changed patient's diaper. Repositioned patient. Potassium replacement started.
[2020-09-28 03:25] VITALS: BP 110/70; PULSE 59; TEMP 98.6
[2020-09-28 10:30] VITALS: BP 94/50; PULSE 90; TEMP 98.4
[2020-09-28 16:39] VITALS: BP 96/60; PULSE 99; TEMP 98.4
--- NOTE | 2020-09-28 19:56 | NUR ---
patient alert, unable to assess orientation. patient non ambulatory at this time. Patient nod yes/no and point to things he need. Patient oxygen was increased to 4L from 2L . current saturation with 90-91%. Patient continue to drink alot of fluid with adequate output.
--- NOTE | 2020-09-28 20:00 | NUR ---
Received report from [facility]. Seen patient awake in bed. Still not communicating well. On O2 at 4lpm via NC. He has been drinking a lot of water. Urine output is adequate. Pill rolling noted on his hands. Bed alarm on.
[2020-09-28 21:07] VITALS: BP 146/70; PULSE 111; TEMP 101
[2020-09-28 21:58] VITALS: TEMP 98.9
[2020-09-29] VITALS (379 sets, daily range): BP systolic 96–148; BP diastolic 62–109; PULSE 92–105; TEMP 98.3–99.8; O2SAT 86–100
--- NOTE | 2020-09-29 01:04 | NUR ---
Changed patient's diaper and repositioned him in bed.
--- NOTE | 2020-09-29 02:45 | NUR ---
Chanell of RT informed this nurse that she increase O2 of patient to 8lpm via NC as he was at 88-89%. Updated Meaghan LIAO via phone call regarding change of oxygen need.
--- NOTE | 2020-09-29 07:00 | NUR ---
Patient needed an increase of oxygen. He was still at 8lpm via high flow nasal cannula. With adequate intake and output. No pain. Endorsed to Liliana.
--- NOTE | 2020-09-29 08:30 | NUR ---
Patient sitting up in bed, on aspiration precautions, watching TV. Alert, but mumbles and hard to understand. VSS. 9L High flow NC O2. When nurse entered the room, patient had taken his O2 off. Nurse assessed O2, 78% on room air, NC placed on patient, nurse in room until O2 saturations increased to 92% on 9L NC O2. RT notified. Chávez natan yellow, clear. Droplet/contact, aspiration precaution in place. Nurse assisted with helping the patient eat, patient on nectar thick fluids. No further needs expressed from the patient. Call light within reach. Bed alarm on
[2020-09-29 10:57] LABS: ARTERIAL BLD GAS O2 SATURATION 84.7 % (92-100); ARTERIAL BLD GAS TCO2 CT 20.7; ARTERIAL BLOOD GAS BASE EXCESS -2.9 (-2-2); ARTERIAL BLOOD GAS HCO3 19.8 meq/L (22-26); ARTERIAL BLOOD GAS PCO2 29.7 mmHg (35-45); ARTERIAL BLOOD GAS pH 7.44 (7.35-7.45)
[2020-09-29 10:58] LABS: ARTERIAL BLOOD GAS PO2 47.9 mmHg (80-100)
[2020-09-29 11:31] LABS: ALBUMIN 3.1 gm/dL (3.5-5.0); BILIRUBIN,TOTAL 0.8 mg/dL (0.0-1.0); CALCIUM 7.4 mg/dL (8.4-10.2); CREATININE, serum 0.71 (0.66-1.25); TOTAL PROTEIN 6.4 gm/dL (6.4-8.2)
[2020-09-29 11:43] LABS: BASO % 0.2 % (0.0-2.0); GRAN # 4.8 (1.4-6.5); GRAN % 76.6 % (42.2-75.2); HEMATOCRIT 38.6 % (42.0-52.0); HEMOGLOBIN 12.4 g/dl (13.5-18.0); LYMPH % 16.6 % (20.0-51.0); MEAN CELL VOLUME 94 fl (80.0-100.0); MEAN CORPUSCULAR HEMOGLOBIN 30 pg (27.0-31.0); MEAN CORPUSCULAR HGB CONC 32 g/dl (33.0-37.0); MEAN PLATELET VOLUME 12.5 fl (7.4-10.4); MONO # 0.4 (0.1-0.6); PLATELET COUNT 127 K/mm3 (130-400); RED BLOOD COUNT 4.12 M/mm3 (4.20-5.60); REDCELL DISTRIBUTION WIDTH-CV 13.6 % (11.5-14.5)
[2020-09-29 11:52] LABS: POTASSIUM 2.9 mmol/L (3.4-5.0)
--- NOTE | 2020-09-29 15:15 | NUR ---
Pt arrived in ICU bed 5 at this time from Medical floor. Pt transported with assistance of RN, PCT, and RT. Pt arrived with stable vitals while on 15 L oxymask. Pt transitioned back to AirVo upon arrival to unit. Will obtain ABG in 50 minutes per direction of Dr. Díaz. Pt is afebrile with noted lethargy and is unable to follow commands.
--- NOTE | 2020-09-29 15:23 | NUR ---
Patient taken by bed from room 306 to ICU 5. Report called to CAMPOS Pulido. Patient on high flow NC O2 15L. Chávez in place. IV bag with fluids on bed with the patient. Tess, RT with the patient and nurse. Dropelt/contact precautions in place. No further needs expressed from the patient.
--- NOTE | 2020-09-29 16:00 | NUR ---
Pt resting in bed. Maintaining oxygen saturations of 89-92% on 95% AirVo. Noted also to be somewhat tachypneic with labored breathing. Dr. Díaz at bedside examining patinent. Called and discussed goals of care with Pt's son Amish. The son will discuss with family members the status of the patient and relay to me their wishes with regard to the potential of intubation.
--- NOTE | 2020-09-29 16:21 | NUR ---
Patient transferring to room 345 due ICU room needed per House Nurse. SW will continue to follow.
[2020-09-29 17:23] LABS: ARTERIAL BLD GAS O2 SATURATION 89.9 % (92-100); ARTERIAL BLOOD GAS BASE EXCESS -5.8 (-2-2); ARTERIAL BLOOD GAS HCO3 16.3 meq/L (22-26); ARTERIAL BLOOD GAS PCO2 24.7 mmHg (35-45); ARTERIAL BLOOD GAS PO2 57.4 mmHg (80-100); ARTERIAL BLOOD GAS pH 7.44 (7.35-7.45)
[2020-09-29 17:33] LABS: MAGNESIUM 2.3 mg/dL (1.6-2.3); PHOSPHOROUS 2.5 mg/dL (2.5-4.5)
--- NOTE | 2020-09-29 21:30 | NUR ---
2129: OTONIEL Harding called about low BPs and O2 at 89-92% on AirVo 95% 60L, told to call Dr. Díaz 2139: Dr. Díaz called, new orders to intubate at this time 2144: Family called and phone consent for intubation given by Amish, son, point of contact. Nursing Margin Analyst aware, called anesthesia to intubate. Respiratory paged. 2233: Pt intubated, color change noted, breath sounds noted bilat. 7.5 ET placed 22 gums, secured. See ventilator monitoring for settings. OG placed 52 lip. Pt tolerated well. Portable CXR ordered to confirm placement. 2299: Large liquid stool, Rectal tube order recieved, in place with 45ml water in bulb.
[2020-09-30] VITALS (1066 sets, daily range): BP systolic 70–123; BP diastolic 40–77; PULSE 65–103; TEMP 98–99.6; O2SAT 90–100
[2020-09-30 01:18] LABS: CALCIUM 8.3 mg/dL (8.4-10.2); CREATININE, serum 0.74 (0.66-1.25); POTASSIUM 3.4 mmol/L (3.4-5.0)
[2020-09-30 04:25] LABS: ARTERIAL BLD GAS O2 SATURATION 95.3 % (92-100); ARTERIAL BLD GAS TCO2 CT 20.2; ARTERIAL BLOOD GAS BASE EXCESS -4.7 (-2-2); ARTERIAL BLOOD GAS HCO3 19.2 meq/L (22-26); ARTERIAL BLOOD GAS PCO2 32.4 mmHg (35-45); ARTERIAL BLOOD GAS PO2 79.7 mmHg (80-100); ARTERIAL BLOOD GAS pH 7.39 (7.35-7.45)
--- NOTE | 2020-09-30 04:52 | NUR ---
SEDATION VACTION DONE DURING LAB DRAW, WHILE HOLDING MEDICATION. PT OPENED EYES DURING LAB DRAW.
[2020-09-30 05:56] LABS: BASO % 0.2 % (0.0-2.0); GRAN # 3.9 (1.4-6.5); GRAN % 68.2 % (42.2-75.2); HEMOGLOBIN 12.2 g/dl (13.5-18.0); LYMPH # 1.5 (1.2-3.4); LYMPH % 26.4 % (20.0-51.0); MEAN CELL VOLUME 94 fl (80.0-100.0); MEAN CORPUSCULAR HEMOGLOBIN 32 pg (27.0-31.0); MEAN CORPUSCULAR HGB CONC 34 g/dl (33.0-37.0); MEAN PLATELET VOLUME 13.3 fl (7.4-10.4); MONO # 0.3 (0.1-0.6); MONO % 4.7 % (1.7-9.3); PLATELET COUNT 129 K/mm3 (130-400); RED BLOOD COUNT 3.84 M/mm3 (4.20-5.60); REDCELL DISTRIBUTION WIDTH-CV 13.7 % (11.5-14.5)
[2020-09-30 06:02] LABS: ALBUMIN 2.8 gm/dL (3.5-5.0); BILIRUBIN,TOTAL 0.7 mg/dL (0.0-1.0); CALCIUM 7.6 mg/dL (8.4-10.2); CREATININE, serum 0.8 (0.66-1.25); MAGNESIUM 2.3 mg/dL (1.6-2.3); PHOSPHOROUS 3.1 mg/dL (2.5-4.5); POTASSIUM 3.2 mmol/L (3.4-5.0); TOTAL PROTEIN 6.1 gm/dL (6.4-8.2)
[2020-09-30 06:17] LABS: HEMATOCRIT 36.2 % (42.0-52.0)
[2020-09-30 06:29] LABS: ARTERIAL BLD GAS O2 SATURATION 97.5 % (92-100); ARTERIAL BLD GAS TCO2 CT 21.8; ARTERIAL BLOOD GAS BASE EXCESS -3.7 (-2-2); ARTERIAL BLOOD GAS HCO3 20.7 meq/L (22-26); ARTERIAL BLOOD GAS PCO2 35.5 mmHg (35-45); ARTERIAL BLOOD GAS PO2 104.8 mmHg (80-100); ARTERIAL BLOOD GAS pH 7.38 (7.35-7.45)
--- NOTE | 2020-09-30 07:05 | NUR ---
RECEIVED REPORT FROM CAMPOS LYONS. PT RESTING EASILY ON CURRENT VENT SETTINGS: AC, TV 450, RR 22, FIO2 100%, PEEP 10. FC PATENT AND DRAINING TO GRAVITY. SEE GTT FLOWSHEET. VSS.
--- NOTE | 2020-09-30 13:04 | NUR ---
The patient is now intubated and on the vent. Naheed, at [facility], contacted JENNIFER to inquire status of patient. SW updated Naheed. Naheed states that when the patient becomes stable and if the [facility], to notify her and fax updates.
--- NOTE | 2020-09-30 14:35 | NUR ---
SPOKE TO DR LEE, PHYSICIAN STATES TO ADVANCE ETT 2CM AND OGT 10CM, RT NOTIFIED AND AT BEDSIDE. PHYSICIAN REQUESTS A NEW CXR PRIOR TO PRONING PT, RADIOLOGY NOTIFIED.
--- NOTE | 2020-09-30 15:00 | NUR ---
DR LEE LOOKED AT NEW CXR, STATES TO HAVE RT ADVANCE ETT 2CM MORE AND OGT 7CM MORE PRIOR TO PRONING, ETT IS CURRENTLY AT 26CM AT THE LIPS AND OGT IS 70CM AT THE LIPS. RT NOTIFIED OF CHANGES PRIOR TO PRONING TO BE MADE.
--- NOTE | 2020-09-30 15:30 | NUR ---
RT AT BEDSDIE ADVANCING ETT TO 28CM AT LIPS AND RN AVDANCES OGT TO 77CM AT THE LIPS PER DR LEE'S INSTRUCTIONS. PT PRONED AT THIS TIME WITH 3 RN AND RT. PT TOLERATES WELL. TF INITIATED AT 25ML/HR PER ORDERS.
--- NOTE | 2020-09-30 22:30 | NUR ---
PT WITH SMALL AMOUNT OF YELLOW EMESIS. TUBE FEEDING ON HOLD. 3ML SOTO RESDIUAL, COLOR NOTED TO BE DIFFERENT THAN EMESIS.
[2020-10-01] VITALS (1379 sets, daily range): BP systolic 89–126; BP diastolic 54–78; PULSE 56–94; TEMP 97.9–99.4; O2SAT 89–100
--- NOTE | 2020-10-01 01:30 | NUR ---
PT NOTED TO HAVE CONTINUED EPISODES OF BRADYCARDIA IN THE 40S, SEDATION REDUCED 0200: PT TOLERATING, BACK IN SINUS RHYTHM.
--- NOTE | 2020-10-01 05:39 | NUR ---
PT EASILY AROUSES DURING PRONING AND REPOSTIONING, PT BECOMES RESTLESS DURING SHORT PERIOD OF BEING AROUSED. SEDATION VACATION NOT DONE AT THIS TIME.
[2020-10-01 07:14] LABS: BASO % 0.1 % (0.0-2.0); GRAN # 6.2 (1.4-6.5); GRAN % 89.4 % (42.2-75.2); HEMOGLOBIN 13.1 g/dl (13.5-18.0); LYMPH # 0.5 (1.2-3.4); LYMPH % 6.4 % (20.0-51.0); MEAN CELL VOLUME 95 fl (80.0-100.0); MEAN CORPUSCULAR HEMOGLOBIN 31 pg (27.0-31.0); MEAN CORPUSCULAR HGB CONC 32 g/dl (33.0-37.0); MEAN PLATELET VOLUME 12.5 fl (7.4-10.4); MONO # 0.3 (0.1-0.6); MONO % 3.7 % (1.7-9.3); PLATELET COUNT 157 K/mm3 (130-400); REDCELL DISTRIBUTION WIDTH-CV 13.6 % (11.5-14.5)
--- NOTE | 2020-10-01 07:15 | NUR ---
Report received from Sarah GASCA and care resumed.
[2020-10-01 07:26] LABS: ALBUMIN 3.4 gm/dL (3.5-5.0); BILIRUBIN,TOTAL 0.6 mg/dL (0.0-1.0); CREATININE, serum 0.75 (0.66-1.25); MAGNESIUM 2.8 mg/dL (1.6-2.3); PHOSPHOROUS 1.9 mg/dL (2.5-4.5); POTASSIUM 3.3 mmol/L (3.4-5.0); TOTAL PROTEIN 7.3 gm/dL (6.4-8.2)
[2020-10-01 07:48] LABS: ARTERIAL BLD GAS O2 SATURATION 91.7 % (92-100); ARTERIAL BLD GAS TCO2 CT 25.8; ARTERIAL BLOOD GAS BASE EXCESS -2.1 (-2-2); ARTERIAL BLOOD GAS HCO3 24.3 meq/L (22-26); ARTERIAL BLOOD GAS PCO2 48.2 mmHg (35-45); ARTERIAL BLOOD GAS PO2 65.5 mmHg (80-100); ARTERIAL BLOOD GAS pH 7.32 (7.35-7.45)
--- NOTE | 2020-10-01 09:28 | NUR ---
Fentanyl was found to be at 40mcg/hr upon assessment.
--- NOTE | 2020-10-01 11:56 | NUR ---
Verbal order per Dr Díaz to decrease sedation.
[2020-10-01 15:04] LABS: MAGNESIUM 2.8 mg/dL (1.6-2.3); POTASSIUM 3.8 mmol/L (3.4-5.0)
--- NOTE | 2020-10-01 16:35 | NUR ---
Spoke with Dr Tatum regarding insulin drip and fact that chart said to hold but had been 2 hours since last check. He stated to just decrease as stated but not hold. Will continue to follow.
--- NOTE | 2020-10-01 17:08 | NUR ---
Propofol was just decreased but Romy now at bedside placing PICC line, unable to further decrease until after procedure done.
--- NOTE | 2020-10-01 19:00 | NUR ---
Received report from CAMPOS Mendiola.
[2020-10-01 19:11] LABS: MAGNESIUM 2.7 mg/dL (1.6-2.3); POTASSIUM 3.9 mmol/L (3.4-5.0)
--- NOTE | 2020-10-01 19:20 | NUR ---
Report given to Yudy GASCA and care transfered.
--- NOTE | 2020-10-01 19:45 | NUR ---
Patient proned with assistance of Yovanny PULLIAM; CAMPOS Hess; and CAMPOS Mendiola. Patient tolerated position change well. Will continue to monitor.
--- NOTE | 2020-10-01 20:00 | NUR ---
Patient's blood glucose at 1999 is 116 from 126 at 1900. Titrated insulin from 4 units/hr to 3 units/hr and notified KESHAWN Harding, who agrees with this titration.
--- NOTE | 2020-10-01 22:18 | NUR ---
Received call from Dr. Varela. To initiate patient on quarter NS at 50mL/hr and to cancel 2300 lab draw. Next draw to be obtained at 0200, with a full panel obtained at 0500. Quarter NS not stocked in [place]; notified Domenic pulp house supervisor, who will obtain medication from pharmacy.
--- NOTE | 2020-10-01 22:18 | NUR ---
During call with Dr. Varela, he stated he did not need notified on 0200 sodium level.
[2020-10-02] VITALS (711 sets, daily range): BP systolic 81–130; BP diastolic 55–78; PULSE 45–91; TEMP 96.7–98.5; O2SAT 76–100
[2020-10-02 02:23] LABS: MAGNESIUM 2.6 mg/dL (1.6-2.3); POTASSIUM 3.8 mmol/L (3.4-5.0)
--- NOTE | 2020-10-02 06:00 | NUR ---
Patient's propofol halfed for sedation vacation to 10 mcg/kg/min or 5.8mL/hr. Patient is currently on weaning trial and tolerating well. Patient is opening eyes to speech and moving extremities, although he is not following commands. Sedation left at 10 mcg/kg/min at this time.
--- NOTE | 2020-10-02 06:14 | NUR ---
Tube feeds titrated from 40mL/hr to goal rate of 54mL/hr at this time.
[2020-10-02 06:22] LABS: ARTERIAL BLD GAS O2 SATURATION 97.6 % (92-100); ARTERIAL BLD GAS TCO2 CT 28.4; ARTERIAL BLOOD GAS BASE EXCESS 1.4 (-2-2); ARTERIAL BLOOD GAS PCO2 47.3 mmHg (35-45); ARTERIAL BLOOD GAS PO2 101.1 mmHg (80-100); ARTERIAL BLOOD GAS pH 7.37 (7.35-7.45)
[2020-10-02 06:49] LABS: GRAN # 5.9 (1.4-6.5); GRAN % 82.5 % (42.2-75.2); HEMATOCRIT 38.2 % (42.0-52.0); HEMOGLOBIN 11.9 g/dl (13.5-18.0); LYMPH # 0.9 (1.2-3.4); LYMPH % 12.3 % (20.0-51.0); MEAN CELL VOLUME 97 fl (80.0-100.0); MEAN CORPUSCULAR HEMOGLOBIN 30 pg (27.0-31.0); MEAN CORPUSCULAR HGB CONC 31 g/dl (33.0-37.0); MEAN PLATELET VOLUME 12.4 fl (7.4-10.4); MONO # 0.3 (0.1-0.6); MONO % 4.4 % (1.7-9.3); PLATELET COUNT 162 K/mm3 (130-400); RED BLOOD COUNT 3.94 M/mm3 (4.20-5.60); REDCELL DISTRIBUTION WIDTH-CV 13.9 % (11.5-14.5)
[2020-10-02 06:59] LABS: BILIRUBIN,TOTAL 0.4 mg/dL (0.0-1.0); CALCIUM 8.6 mg/dL (8.4-10.2); CREATININE, serum 0.7 (0.66-1.25); MAGNESIUM 2.5 mg/dL (1.6-2.3); PHOSPHOROUS 3.1 mg/dL (2.5-4.5); POTASSIUM 3.9 mmol/L (3.4-5.0); TOTAL PROTEIN 6.5 gm/dL (6.4-8.2)
--- NOTE | 2020-10-02 07:00 | NUR ---
VENT CHECK MISSED, RT BUSY
--- NOTE | 2020-10-02 07:05 | NUR ---
Report given to CAMPOS Can.
--- NOTE | 2020-10-02 07:07 | NUR ---
PT ON WEAN TRAIL WHILE STILL PRONED. PT ON AND PIPPA WELL WITH NO DISTRESS NOTED AT THIS TIME. WILL CONTINE TO MONITOR AND ASSESS
[2020-10-02 10:39] LABS: POTASSIUM 3.7 mmol/L (3.4-5.0)
[2020-10-02 11:39] LABS: MAGNESIUM 2.5 mg/dL (1.6-2.3)
--- NOTE | 2020-10-02 19:00 | NUR ---
Received report from CAMPOS Can. Patient resting quietly in bed at this time; tolerating ventilator well. Vitals within normal limits. Will continue to monitor.
--- NOTE | 2020-10-02 19:48 | NUR ---
Dr. Varela notifeid of PTs decreasing sodium level. Order received to decrease 14 NS rate to 50ml/hr.
--- NOTE | 2020-10-02 23:02 | NUR ---
Patient's blood glucose at 2130 was 144 from 200 at 2044. Insulin drip previously running at 16 units/hr set to standby for approximately one hour. At 2230, blood glucose was 135, and drip resumed at 10 units/hr per protocol. Blood sugar at 2300 is 122. Discussed drip protocol with KESHAWN Harding, who agrees drip should be decreased to 5 units/hr. Will continue to monitor.
[2020-10-03] VITALS (935 sets, daily range): BP systolic 102–138; BP diastolic 67–86; PULSE 70–98; TEMP 97–100.8; O2SAT 77–100
--- NOTE | 2020-10-03 03:00 | NUR ---
During patient's bath, two open blisters noted to the right shoulder. The larger of the two measures approximately 2.5cm x 1.5cm. The smaller is approximately 2cm x 1.5cm. Wound bed is pink, and no drainage is noted. Both are left open to air. Will continue to monitor.
[2020-10-03 04:28] LABS: BASO % 0.2 % (0.0-2.0); EOS % 0.2 % (0-4.0); GRAN # 3.8 (1.4-6.5); HEMOGLOBIN 10.3 g/dl (13.5-18.0); LYMPH # 1.4 (1.2-3.4); LYMPH % 25.5 % (20.0-51.0); MEAN CELL VOLUME 96 fl (80.0-100.0); MEAN CORPUSCULAR HEMOGLOBIN 31 pg (27.0-31.0); MEAN CORPUSCULAR HGB CONC 32 g/dl (33.0-37.0); MEAN PLATELET VOLUME 12.4 fl (7.4-10.4); MONO # 0.3 (0.1-0.6); MONO % 5.2 % (1.7-9.3); PLATELET COUNT 150 K/mm3 (130-400); RED BLOOD COUNT 3.37 M/mm3 (4.20-5.60); REDCELL DISTRIBUTION WIDTH-CV 14.1 % (11.5-14.5)
[2020-10-03 04:29] LABS: HEMATOCRIT 32.5 % (42.0-52.0)
[2020-10-03 04:38] LABS: ALBUMIN 2.5 gm/dL (3.5-5.0); BILIRUBIN,TOTAL 0.4 mg/dL (0.0-1.0); CREATININE, serum 0.73 (0.66-1.25); MAGNESIUM 2.2 mg/dL (1.6-2.3); PHOSPHOROUS 2.9 mg/dL (2.5-4.5); POTASSIUM 3.7 mmol/L (3.4-5.0); TOTAL PROTEIN 5.6 gm/dL (6.4-8.2)
[2020-10-03 04:46] LABS: ARTERIAL BLD GAS O2 SATURATION 92.5 % (92-100); ARTERIAL BLD GAS TCO2 CT 30.6; ARTERIAL BLOOD GAS BASE EXCESS 4.7 (-2-2); ARTERIAL BLOOD GAS HCO3 29.3 meq/L (22-26); ARTERIAL BLOOD GAS PCO2 43.3 mmHg (35-45); ARTERIAL BLOOD GAS PO2 62.2 mmHg (80-100); ARTERIAL BLOOD GAS pH 7.45 (7.35-7.45)
--- NOTE | 2020-10-03 05:32 | NUR ---
Sedation titrated off per Dr. Díaz's orders for AM weaning trial. Patient opening eyes spontaneously and moving extremities. Will continue to monitor.
--- NOTE | 2020-10-03 07:02 | NUR ---
PT IS WEAN TRIAL PIPPA WELL WITH NO DISTRESS NOTED AT THIS TIME
--- NOTE | 2020-10-03 11:59 | NUR ---
The patient remains intubated. The clinical team will attempt to extubate the patient tomorrow. SW contacted the patient's son, Amish, to follow up. Amish states that he is doing well. He states that he just hopeful for the patient to get well soon and be able to go to post-acute rehab. SW provided support. SW to continue to follow.
--- NOTE | 2020-10-03 23:59 | NUR ---
All sedation off at this time per provider order.
[2020-10-04] VITALS (1303 sets, daily range): BP systolic 103–117; BP diastolic 76–82; PULSE 93–103; TEMP 96.9–99.8; O2SAT 72–100
[2020-10-04 04:15] LABS: BASO % 0.2 % (0.0-2.0); EOS # 0.1 (0.0-0.7); EOS % 0.8 % (0-4.0); GRAN # 7.3 (1.4-6.5); GRAN % 83.4 % (42.2-75.2); HEMATOCRIT 38.7 % (42.0-52.0); LYMPH % 10.9 % (20.0-51.0); MEAN CELL VOLUME 95 fl (80.0-100.0); MEAN CORPUSCULAR HEMOGLOBIN 30 pg (27.0-31.0); MEAN CORPUSCULAR HGB CONC 32 g/dl (33.0-37.0); MONO # 0.3 (0.1-0.6); MONO % 3.8 % (1.7-9.3); PLATELET COUNT 147 K/mm3 (130-400); RED BLOOD COUNT 4.08 M/mm3 (4.20-5.60); REDCELL DISTRIBUTION WIDTH-CV 13.8 % (11.5-14.5)
[2020-10-04 04:17] LABS: HEMOGLOBIN 12.4 g/dl (13.5-18.0)
[2020-10-04 04:25] LABS: ALBUMIN 3.1 gm/dL (3.5-5.0); BILIRUBIN,TOTAL 0.6 mg/dL (0.0-1.0); CALCIUM 8.3 mg/dL (8.4-10.2); CREATININE, serum 0.59 (0.66-1.25); MAGNESIUM 2.2 mg/dL (1.6-2.3); PHOSPHOROUS 2.7 mg/dL (2.5-4.5); POTASSIUM 3.6 mmol/L (3.4-5.0); TOTAL PROTEIN 6.8 gm/dL (6.4-8.2)
[2020-10-04 04:58] LABS: ARTERIAL BLD GAS O2 SATURATION 90.9 % (92-100); ARTERIAL BLD GAS TCO2 CT 28.3; ARTERIAL BLOOD GAS BASE EXCESS 4.2 (-2-2); ARTERIAL BLOOD GAS HCO3 27.2 meq/L (22-26); ARTERIAL BLOOD GAS PCO2 35.8 mmHg (35-45); ARTERIAL BLOOD GAS PO2 56.3 mmHg (80-100)
--- NOTE | 2020-10-04 05:00 | NUR ---
PT sedation has been off since 0000 per provider order.
--- NOTE | 2020-10-04 06:07 | NUR ---
PLACED PATIENT ON WEANING TRIAL OF 03/29. DOING WELL, RN WAS NOTIFIED.
[2020-10-04 20:18] LABS: ARTERIAL BLD GAS O2 SATURATION 89.6 % (92-100); ARTERIAL BLD GAS TCO2 CT 25.3; ARTERIAL BLOOD GAS BASE EXCESS 2.5 (-2-2); ARTERIAL BLOOD GAS HCO3 24.3 meq/L (22-26); ARTERIAL BLOOD GAS PCO2 31.1 mmHg (35-45); ARTERIAL BLOOD GAS pH 7.51 (7.35-7.45)
--- NOTE | 2020-10-04 20:44 | NUR ---
DUE TO ABG RESULTS INCREASED FIO2 TO 40%. ALSO ET WAS FOUND TO BE 22@LIP FROM PREVIOUS 26@LIP. WITH ASSISTANCE FROM RN WE PLACED TUBE BACK AT 26@LIP.
[2020-10-05] VITALS (1005 sets, daily range): BP systolic 78–115; BP diastolic 57–83; PULSE 77–101; TEMP 97.8–98.7; O2SAT 79–100
[2020-10-05 05:20] LABS: ARTERIAL BLD GAS O2 SATURATION 82.9 % (92-100); ARTERIAL BLD GAS TCO2 CT 26.6; ARTERIAL BLOOD GAS BASE EXCESS 2.3 (-2-2); ARTERIAL BLOOD GAS HCO3 25.5 meq/L (22-26); ARTERIAL BLOOD GAS PCO2 35.4 mmHg (35-45); ARTERIAL BLOOD GAS pH 7.48 (7.35-7.45)
[2020-10-05 05:21] LABS: BASO % 0.2 % (0.0-2.0); EOS # 0.1 (0.0-0.7); EOS % 1.2 % (0-4.0); GRAN # 8.2 (1.4-6.5); GRAN % 79.5 % (42.2-75.2); HEMATOCRIT 40.8 % (42.0-52.0); HEMOGLOBIN 13.3 g/dl (13.5-18.0); LYMPH # 1.5 (1.2-3.4); LYMPH % 14.4 % (20.0-51.0); MEAN CELL VOLUME 94 fl (80.0-100.0); MEAN CORPUSCULAR HEMOGLOBIN 31 pg (27.0-31.0); MEAN CORPUSCULAR HGB CONC 33 g/dl (33.0-37.0); MEAN PLATELET VOLUME 12.5 fl (7.4-10.4); MONO # 0.4 (0.1-0.6); MONO % 3.5 % (1.7-9.3); PLATELET COUNT 167 K/mm3 (130-400); RED BLOOD COUNT 4.36 M/mm3 (4.20-5.60); REDCELL DISTRIBUTION WIDTH-CV 13.3 % (11.5-14.5)
[2020-10-05 05:24] LABS: ARTERIAL BLOOD GAS PO2 46.2 mmHg (80-100)
[2020-10-05 05:27] LABS: ALBUMIN 3.3 gm/dL (3.5-5.0); BILIRUBIN,TOTAL 0.8 mg/dL (0.0-1.0); CALCIUM 8.8 mg/dL (8.4-10.2); CREATININE, serum 0.68 (0.66-1.25); POTASSIUM 3.9 mmol/L (3.4-5.0); TOTAL PROTEIN 7.2 gm/dL (6.4-8.2)
--- NOTE | 2020-10-05 06:19 | NUR ---
PATIENT PLACED ON CPAP TRIAL AT 0510 PRESSURE SUPPORT OF 5 PEEP OF 8. GETTING ADEQUATE VOLUMES BUT HAVING A HIGH RATE AND SEEMING LABORED. WILL LET PATIENT RELAX AND REASSESS.
--- NOTE | 2020-10-05 06:21 | NUR ---
CPAP TRIAL ENDED AT 527 DUE TO PATIENT HAVING INCREASED RATE OF LOW TO MID 30'S AND INCREASED AGITATION. RN WAS NOTIFIED.
--- NOTE | 2020-10-05 07:30 | NUR ---
report received from Jeremias Ding. Propofol running at 20mcg/kg/min.
--- NOTE | 2020-10-05 07:45 | NUR ---
INSULIN DRIP RUNNING AT 1.5UNITS/HR AT BEGINING OF SHIFT.
--- NOTE | 2020-10-05 07:53 | NUR ---
PT noted to be tachypneic on and off throughout the night, breathing in the mid-high 30's, frequently yawning against ventilator and holding breath. Called JOCELYNE provider at 0449 to explain situation along with stating that q3h prn Versed is not working for the patient. Orders received to start a Precedex gtt. This RN called Dr. Díaz at 0524 to verify that Precedex could be started, Dr. Díaz stated to not start that drip and to restart the patient on Propofol instead. This RN also reported that the patient's ABG PO2 was in the low 40's, orders received to increase FiO2 on ventilator.
--- NOTE | 2020-10-05 10:41 | NUR ---
propofol decreased and levophed stopped per .
--- NOTE | 2020-10-05 15:32 | NUR ---
Bg result of 158. drip stopped for 30 mins then restarted at a rate of 3 units/hr.
--- NOTE | 2020-10-05 17:00 | NUR ---
EARLIER IN THE SHIFT DECREASED PROPOFOL FROM 20MCG TO 15MCG. PT NOT FOLLOWING COMMANDS. ATTEMPTED TO DECREASE TO 10MCG OF PROPOFOL BUT PT'S RESPIRATIONS INCREASED TO THE 30'S AND FIGHTING THE VENT. PT HAS REMAINED ON 15MCG AND TOLERATING THE VENT. WILL CONTINUE TO MONITOR.
--- NOTE | 2020-10-05 21:15 | NUR ---
bg-173 Insulin gtt rate increased by 1, current rate 3u/hr
[2020-10-06] VITALS (1081 sets, daily range): BP systolic 81–107; BP diastolic 55–72; PULSE 78–102; TEMP 97–98.9; O2SAT 70–100
--- NOTE | 2020-10-06 05:00 | NUR ---
PT sedation currently light, PT occasionally sitting up in bed and attempting to turn left. Sedation not decreased at this time.
[2020-10-06 05:05] LABS: BASO % 0.2 % (0.0-2.0); EOS # 0.1 (0.0-0.7); EOS % 1.6 % (0-4.0); GRAN # 6.2 (1.4-6.5); GRAN % 74.5 % (42.2-75.2); HEMATOCRIT 36.6 % (42.0-52.0); LYMPH # 1.5 (1.2-3.4); LYMPH % 18.2 % (20.0-51.0); MEAN CELL VOLUME 93 fl (80.0-100.0); MEAN CORPUSCULAR HEMOGLOBIN 30 pg (27.0-31.0); MEAN CORPUSCULAR HGB CONC 33 g/dl (33.0-37.0); MONO # 0.4 (0.1-0.6); MONO % 4.2 % (1.7-9.3); PLATELET COUNT 149 K/mm3 (130-400); RED BLOOD COUNT 3.95 M/mm3 (4.20-5.60); REDCELL DISTRIBUTION WIDTH-CV 13.1 % (11.5-14.5)
[2020-10-06 05:10] LABS: CALCIUM 8.5 mg/dL (8.4-10.2); CREATININE, serum 0.65 (0.66-1.25); POTASSIUM 3.7 mmol/L (3.4-5.0)
[2020-10-06 05:34] LABS: ARTERIAL BLD GAS O2 SATURATION 95.4 % (92-100); ARTERIAL BLD GAS TCO2 CT 24.9; ARTERIAL BLOOD GAS BASE EXCESS 0.9 (-2-2); ARTERIAL BLOOD GAS HCO3 23.9 meq/L (22-26); ARTERIAL BLOOD GAS PCO2 33.3 mmHg (35-45); ARTERIAL BLOOD GAS PO2 79.2 mmHg (80-100); ARTERIAL BLOOD GAS pH 7.47 (7.35-7.45)
--- NOTE | 2020-10-06 05:50 | NUR ---
PATIENT PLACED ON 03/29 FOR CPAP TRIAL. PATIENT IS DOING GREAT WITH PROPER TIDAL VOLUMES BEING ACHEIVED. RN WAS NOTIFIED OF STARTING TRIAL.
--- NOTE | 2020-10-06 07:30 | NUR ---
Report received from Jeremias GASCA. Insulin running at 4units/hr and propofol running at 10mcg/kg/min.
--- NOTE | 2020-10-06 09:45 | NUR ---
PROPOFOL PLACED ON STANDBY PER REQUEST.
--- NOTE | 2020-10-06 12:14 | NUR ---
Pt starting to try to sit up in bed. Pt tachypnic. Pt still unable to follow commands but is moving all extremities. Propofol restarted at low rate of 10mcg/kg/min which was previous dose. Will continue to moniotr.
--- NOTE | 2020-10-06 17:01 | NUR ---
Sedation shut off earlier this Am. (see previous note). Pt not following commands, responding to voice or pain. Pt had become tachypnic and fighting vent. Sedation was turned back on. Hebert continue to monitor.
[2020-10-07] VITALS (1134 sets, daily range): BP systolic 95–111; BP diastolic 60–80; PULSE 80–98; TEMP 96.9–98.7; O2SAT 52–100
--- NOTE | 2020-10-07 05:15 | NUR ---
Patient's rectal tube removed. Very little gas or stool noted in drainage tube. Loose stool noted in tubing at anus, otherwise stool in tubing appears dry and flaky.
[2020-10-07 05:21] LABS: ARTERIAL BLD GAS TCO2 CT 27.2; ARTERIAL BLOOD GAS BASE EXCESS 2.4 (-2-2); ARTERIAL BLOOD GAS HCO3 26.1 meq/L (22-26); ARTERIAL BLOOD GAS PCO2 37.3 mmHg (35-45); ARTERIAL BLOOD GAS PO2 80.5 mmHg (80-100); ARTERIAL BLOOD GAS pH 7.46 (7.35-7.45)
--- NOTE | 2020-10-07 05:30 | NUR ---
Patient receiving propofol at 5 mcg/kg/min or 2.8 mL/hr throughout majority of NOC. Set to standby for weaning trial at approximately 0545. Patient tolerating well. Opens eyes spontaneously although he is not tracking movements nor following commands. Will continue to monitor closely.
--- NOTE | 2020-10-07 06:01 | NUR ---
PATIENT PLACED ON CPAP TRIAL AT 0520 THIS MORNING WITH SETTINGS OF 5/8 RN WAS NOTIFIED.
[2020-10-07 06:27] LABS: BILIRUBIN,TOTAL 0.5 mg/dL (0.0-1.0); CALCIUM 8.7 mg/dL (8.4-10.2); CREATININE, serum 0.7 (0.66-1.25); MAGNESIUM 2.4 mg/dL (1.6-2.3); POTASSIUM 3.4 mmol/L (3.4-5.0); TOTAL PROTEIN 6.7 gm/dL (6.4-8.2)
[2020-10-07 06:35] LABS: PRE ALBUMIN 13.9 mg/dL (17.6-36.0)
[2020-10-07 12:19] LABS: ARTERIAL BLD GAS O2 SATURATION 96.8 % (92-100); ARTERIAL BLD GAS TCO2 CT 24.5; ARTERIAL BLOOD GAS BASE EXCESS -0.4 (-2-2); ARTERIAL BLOOD GAS HCO3 23.4 meq/L (22-26); ARTERIAL BLOOD GAS PCO2 35.6 mmHg (35-45); ARTERIAL BLOOD GAS PO2 92.2 mmHg (80-100); ARTERIAL BLOOD GAS pH 7.44 (7.35-7.45)
--- NOTE | 2020-10-07 12:28 | NUR ---
PT extubated by RT Chela with assistance of RN. Extubation was successful without incident. PT placed on oxymask at 4L. O2 saturation maintaining at 96%. Will continue to monitor.
--- NOTE | 2020-10-07 14:06 | NUR ---
The patient was extubated earlier today. The patient's family is deciding on whether they would want the patient to be reintubated, if needed. SW contacted the patient's son, Amish, to follow up. Amish states that he is doing okay. He states that his father is pretty much still the same. He would like to see how his father does. SW to continue to follow.
--- NOTE | 2020-10-07 18:51 | NUR ---
poc blood sugar 93. Hospitalist notified. Insuling drip currently on hold waiting for new orders. Information to be passed on to [facility].
--- NOTE | 2020-10-07 19:20 | NUR ---
Received report from CAMPOS Can.
--- NOTE | 2020-10-07 20:29 | NUR ---
Contacted Dr. Tidwell regarding patient's insulin drip orders now that patient is extubated and tube feeds are discontinued. Received orders to initiate q 6 hour accuchecks on a mid-sliding scale. Will continue to monitor.
[2020-10-08] VITALS (918 sets, daily range): BP systolic 104–115; BP diastolic 68–81; PULSE 88–100; TEMP 97.7–97.9; O2SAT 81–100
[2020-10-08 06:08] LABS: BASO % 0.2 % (0.0-2.0); EOS # 0.1 (0.0-0.7); GRAN # 7.9 (1.4-6.5); GRAN % 76.2 % (42.2-75.2); HEMATOCRIT 42.2 % (42.0-52.0); HEMOGLOBIN 13.5 g/dl (13.5-18.0); LYMPH # 1.6 (1.2-3.4); MEAN CELL VOLUME 96 fl (80.0-100.0); MEAN CORPUSCULAR HEMOGLOBIN 31 pg (27.0-31.0); MEAN CORPUSCULAR HGB CONC 32 g/dl (33.0-37.0); MEAN PLATELET VOLUME 13.3 fl (7.4-10.4); MONO # 0.6 (0.1-0.6); MONO % 6.2 % (1.7-9.3); PLATELET COUNT 211 K/mm3 (130-400); RED BLOOD COUNT 4.42 M/mm3 (4.20-5.60); REDCELL DISTRIBUTION WIDTH-CV 13.8 % (11.5-14.5)
[2020-10-08 06:11] LABS: CALCIUM 9.5 mg/dL (8.4-10.2); CREATININE, serum 0.68 (0.66-1.25); POTASSIUM 3.6 mmol/L (3.4-5.0)
--- NOTE | 2020-10-08 07:05 | NUR ---
RECEIVED REPORT FROM CAMPOS SOUSA. PT RESTING EASILY IN BED ON 6L VIA OXYMASK. VSS. FC PATENT AND DRAINING TO GRAVITY. CALL LIGHT WITHIN REACH. NOTED MITTS IN PLACE. PT DOES TURN AND LOOK AT RN WHEN SPOKEN TO BUT ONLY MUMBLES A LITTLE. DOES NOT FOLLOW MANY COMMADS AT THIS TIME. NOTED TO AVA Montalvo BY SELF.
--- NOTE | 2020-10-08 08:20 | NUR ---
NURSIGN BEDSIDE SWALLOW PERFORMED. PT ABLE TO TAKE APPLE SAUCE EASILY AND THICKER MEDICATIONS BUT DOES HAVE A DELAYED COUGH WITH WATER. PT DOES NOT FOLLOW INSTRUCTIONS WELL TO USE STRAW. WILL RELAY TO ST WHEN THEY COME TO EVALUATE TODAY.
--- NOTE | 2020-10-08 09:45 | NUR ---
DR CASPER AT BEDSIDE FOR ASSESSMENT. NEW ORDERS RECEIVED.
--- NOTE | 2020-10-08 10:41 | NUR ---
Stretcher Helper was able to stand outside of door and prayer for patient.
--- NOTE | 2020-10-08 11:35 | NUR ---
DR SPRAGUE AT BEDSIDE FOR ASSESSMENT ALONG WITH ST. PHYSICIAN STATES CAN ORDER DIET BASED OF ST RECOMMENDATIONS. AFTER EVALUATION, PT IS TIRED AND IS HAVING A HARDER TIME FOLLOWING COMMANDS AT THIS TIME COMPARED TO THIS MORNING. ST SUGGESTS TO REEVLUATE TOMORROW MORNIGN BUT PT CAN HAVE NECTOR LIQUIDS OR APPLESAUCE IN SMALL INCREMENTS UNTIL THEN IF PT IS MORE AWAKE. WILL CONTINUE TO EVALUTE PT.
--- NOTE | 2020-10-08 11:37 | NUR ---
JENNIFER staffed with the behaviour support teacher on whether the patient would be a candidate for [facility]. The behaviour support teacher reports that he would. JENNIFER contacted and discussed this option with the patient's son, Amish. Amish would like to talk to his family first, but is agreeable to this option. JENNIFER contacted and faxed a referral to Marco at [facility]. SW awaiting their screen. JENNIFER also faxed updates to [facility] and [facility].
--- NOTE | 2020-10-08 12:49 | NUR ---
DISCUSSED [facility] WITH OCTAVIA. AWAITING FOR PLACEMENT.
--- NOTE | 2020-10-08 13:24 | NUR ---
SPOKE TO PROJECT ENGINEERING MANAGER, PT HAS BEEN ACCETPED TO [facility] TODAY. DR BRICENO NOTIFIED.
--- NOTE | 2020-10-08 14:38 | NUR ---
Marco, at [facility], reports that they are able to accept the patient. JENNIFER notified the clinical team. The clinical team would be ready to d/c the patient today. JENNIFER then contacted and updated the patient's son, Amish. Amish states that he is at work and would like for his niece to call up to the hospital to speak to SW. He states he cannot write down SW's phone at this time, but will have his niece just call the hospital number. The patient's RN then notified JENNIFER that she just spoke to the niece and updated her on [facility]. His RN reports that the patient's niece is agreeable to [facility]. JENNIFER then contacted the patient's son, Amish, again to confirm this. Amish's , Jesica, was also on the line. Amish reports that he is agreeable to the patient going to [facility] today. JENNIFER read the EMS Consent Form outloud to Amish. Amish verbalized understanding and gave approval to sign the form on his behalf. Amish requests that JENNIFER contact his with the transport time. The patient is to discharge today, 10/08, to [facility] in [place]. Transportation was scheduled at 1530, via [facility]. JENNIFER notified the patient's RN, his [id number] (Jesica), and Marco at [facility]. They were all agreeable to the time. No additional needs at this time.
--- NOTE | 2020-10-08 15:20 | NUR ---
REPORT CALLED TO CAMPOS MEYERS AT [facility] . INFORMED [facility] WILL BE HERE SHORTLY TO FRONT END ASSISTANT PT.
--- NOTE | 2020-10-08 15:46 | NUR ---
[facility] PICKS UP PT AND TRANSFERS TO THEIR STRETCHER. PT LEAVES UNIT ON 4L VIA OXYMASK AND IVF. ALL PERSONAL BELONINGS SENT WITH PT.
== END 2020-10-08 15:45 | DRG 207 ==
LOC: COL.ER 15:30 → MEDICAL 17:01 → ICU 09-29 12:44
PROVIDERS: Emergency Medicine; Hospitalist; Internal Medicine Critical Care Medicine; Internal Medicine Nephrology; Internal Medicine Pulmonary Disease; Nurse Practitioner Family; Physician Assistant; Student in an Organized Health Care Education/Training Program; ADMIT Internal Medicine
PROC: 5A1955Z Respiratory Ventilation, Greater than 96 Consecutive Hours (ICD-10-PCS; principal; 2020-09-29)
PROC: 0BH17EZ Insertion of Endotracheal Airway into Trachea, Via Natural or Artificial Opening (ICD-10-PCS; 2020-09-29)
PROC: XW033E5 Introduction of Remdesivir Anti-infective into Peripheral Vein, Percutaneous Approach, New Technology Group 5 (ICD-10-PCS; 2020-09-29)
PROC: XW13325 Transfusion of Convalescent Plasma (Nonautologous) into Peripheral Vein, Percutaneous Approach, New Technology Group 5 (ICD-10-PCS; 2020-09-30)
DX: U07.1 COVID-19 (principal); J12.89 Other viral pneumonia; J69.0 Pneumonitis due to inhalation of food and vomit; J96.01 Acute respiratory failure with hypoxia; J44.0 Chronic obstructive pulmonary disease with (acute) lower respiratory infection; E87.2 Acidosis; E87.0 Hyperosmolality and hypernatremia; G93.40 Encephalopathy, unspecified; E03.9 Hypothyroidism, unspecified; E11.9 Type 2 diabetes mellitus without complications; E78.5 Hyperlipidemia, unspecified; F32.9 Major depressive disorder, single episode, unspecified; E87.6 Hypokalemia; R19.7 Diarrhea, unspecified; K21.9 Gastro-esophageal reflux disease without esophagitis; I95.9 Hypotension, unspecified; E83.39 Other disorders of phosphorus metabolism; Z87.820 Personal history of traumatic brain injury
CPT/HCPCS: 99222-AI; 99232-AI; 99233-AI; 99239; A4217; C1751; C1892; J0456; J1100; J1650; J1815; J2250; J2543; J2704; J3010; J3480; J7030; J7050; J7060; J7131; J8540